=== PATIENT | female | born 1965 | race Caucasian/White ===

== ENCOUNTER → 2016-08-07 | Outpatient (CLI) | payer MEDICARE ==
[~2016-08-07] MED LIST: /CELE20CA; /CELE20CA PO; /FENT25PA; /FENT75PA; /LOR25TA PO; /PANT40TA OR; /QUET25TA OR; ABIL20TA2; ACET500C; ACET500C OR; AMIT25TA PO; ARTANE; ATIV1TAB2 OR; BACL10TA2 OR; BUSP10TA2 OR; BUSP15TA OR; BUSP30TA OR; CELE100C; CELE10TA; CELE10TA OR; CELE40TA; CETI10TA OR; CHLO10TA4 OR; CHLORPROMAZINE PO; CITALOPRAM; CLON0.5T; CYMB1CAP PO; CYPROHEPTADINE; DESIPRAMINE OR; DICL25TA OR; DICLOFENAC PO; DOXE25CA2 OR; DRIS50002 PO; DULO20CA OR; ETOD400T PO; FOLI1TAB; GABA300C2 PO; GABAPOW41; GEOD20CA14 OR; HYDR-2808 PO; HYDR5TAB23 PO; IMIT4KIT2 SC; IMIT6INJ INJ; IMIT6INJ SC; KLON0.5T OR; KLON1TAB OR; LAMI25TA PO; LIDO5DIS; LITH300C PO; LITH300T2; LYRI75CA OR; MACR100C3 PO; MACR50CA OR; MELATONIN PO; MORP1CAP7 PO; NAPR500T; NAPR500T PO; NEUR100C; NEUR300C OR; NEUR400C; NEUR400C OR; NEUR600T OR; OMEP20CA3 PO; OPAN5TAB3 PO; PAXI20TA OR; PERC10TA17 PO; PERC7.5T PO; PERC7.5T12 PO; PERPHEN AMITRIP; POTA20TA4 PO; PRAZ1CAP PO; PRAZ5CAP PO; PREG100CA PO; PROC5TA PO; PROM25TA PO; PROP20TA5 PO; PROP60TA; REGL10TA6 PO; REME45TA OR; REST30CA; REST7.5C8 OR; ROBA500T PO; SOMA350T PO; SUBO8MIS SL; SULI150T PO; TOPA100T PO; TOPA200T PO; TOPI100T; TOPI25TA2 OR; TOPI50TA; TRAM100T; TRAM50TA2; TRAM50TA2 OR; TRAZ100T; TRAZ10TA PO; TRAZ150T; TRAZ300T2; TRAZ300T2 OR; TYLE500T53; VALI5TAB; VENL37TA PO; VENL75TA2 PO; VICO5TAB OR; VICODINES TAB OR; VITA100T; ZYPR5TAB2 PO; ambien PO; effexor PO; melatonin OR; voltaren PO
--- NOTE | 2016-08-07 13:00 | REP ---
MRI brain without contrast: 08/07/2016. Comparison 02/01/2015, CT brain 06/18/2016. Clinical history: Tremor and memory loss. Findings: Our standard noncontrast protocol with T1 and T2, gradient echo, diffusion-weighted images in axial projection with sagittal T1 sequence provided. Findings: Ventricles are midline, symmetric and the without dilatation and displacement. The basal ganglia were symmetric and normal. All of this is unchanged. There are a few dilated perivascular spaces of Virchow in the basal ganglia as a normal finding. T2 and FLAIR images show no definite periventricular, deep central or subcortical white matter T2 hyperintensities. The fletcher-white junction differentiation was maintained. The cortical stripe is preserved. There is no vascular territory infarct, intracranial hemorrhage, mass or mass effect. No extra-axial collection. The brainstem was unremarkable. Cerebellum is symmetric and without atrophy, mass or signal abnormality. The VII/VIII cranial nerve complexes, mastoids and visualized sinuses were unremarkable except for a few ethmoid air cells with minor mucosal thickening. Orbits and contents symmetric and normal. The corpus callosum, optic chiasm and pituitary were unremarkable. The cerebellar tonsils show no evidence of significant ectopia. Gradient echo images show no evidence of hemorrhage. Diffusion weighted images and ADC mapping sequences demonstrate no evidence for acute ischemia or restricted water diffusion. Impression: 1. Negative brain MRI for any acute findings, white matter tract abnormality, atrophy, hemorrhage, mass, structural deformity. The brainstem and cerebellum likewise grossly intact. No acute ischemia on diffusion weighted images. Stable exam. Signed by Jaycob Arreaga MD 08/07/2016 04:45 P
== END | disposition home or self-care (01) ==
LOC: M RAD 08:57
PROVIDERS: ATTEND Psychiatry & Neurology Neurology
DX: R41.3 Other amnesia (principal); R25.1 Tremor, unspecified

== ENCOUNTER → 2016-08-28 | Outpatient (CLI) | payer MEDICARE ==
--- NOTE | 2016-08-29 00:03 | ECWPNPC ---
PATIENT NAME: ANGIE ELLIS : 1965 GENDER: FEMALE VISIT DATE: 08/28/2016 DISCHARGE DATE: 08/28/16 1522 VISIT LOCKED DATE TIME: PHYSICIAN: JERE TERRY RESOURCE: JERE TERRY REASON FOR APPOINTMENT 1. MEDS/ BACK HISTORY OF PRESENT ILLNESS HISTORY OF PRESENT ILLNESS: PAIN THE PATIENT DESCRIBES THE PAIN... FALL RISK SCREENING: SCREENING :NO FALLS IN THE PAST YEAR TODAY'S VISIT: NOTES: RECENT FALL 05/20 FX LEFT FOOT NEEDED REPAIR WITH PLATES AND SCREWS. KOKO IS ACROSS THE ANKLE. BACK PAIN IS STILL A CONSTANT - MORNING ARE THE WORST. USING DCS BUT STIM NOT ALWAYS IN RIGHT. DID NOT DO PT FOR FOOT/DEWAYNE LE. FIBROMYALGIA IS QUITE UNCOMFORTABLE WITH PRESSURE APPLIED TO SKIN. CURRENT MEDICATIONS TAKING SUBOXONE 8-2 MG FILM 3 APPLICATIONS SUBLINGUAL ONCE A DAY, NOTES: DR MARTIN TAKING IMITREX STATDOSE REFILL 6 MG/0.5ML SOLUTION SC SUBCUTANEOUS DAILY NEEDED MAXIMUM 4 MIGRAINES PER MONTH TAKING LAMOTRIGINE 200 MG TABLET 2 TABS ORALLY BID TAKING ZOFRAN 4 MG TABLET 1 TAB(S) ORALLY ONCE A DAY TAK[place]ITAMIN D 12141 TABLET 1 TABLET ORALLY WEEKLY TAKING CYCLOBENZAPRINE HCL 10 MG TABLET 1 TABLET ORALLY THREE TIMES A DAY PRN TAKING OMEPRAZOLE 20MG 20MG TABLET 1 TAB ORAL ONCE DAILY TAKING LYRICA 225 MG CAPSULE 1 CAPSULE ORALLY TWICE A DAY NOT-TAKING TRAZODONE 100 100MG TABLET 2-3 TABS ORAL DAILY NOT-TAKING LITHIUM CARBONATE ER 600 MG TABLET EXTENDED RELEASE 1 TABLET ORALLY ONCE A DAY NOT-TAKING SPIRONOLACTONE 100 MG TABLET 1 TABLET ORALLY ONCE A DAY NOT-TAKING TRAMADOL HCL 50 MG TABLET 1 TABLET NEEDED ORALLY EVERY 6 HRS MEDICATION LIST REVIEWED AND RECONCILED WITH THE PATIENT PAST MEDICAL HISTORY BIPOLAR/DEPRESSION/PTSD- [facility] CHRONIC BACK PAIN/LUMBAR DISC PROTRUSION/ LUMBAR RADICULOPATHY- SURGERY PER DR TRUMAN SERNA ON Feb-FUSION DYSPEPSIA CHRONIC HEADACHE/MIGRAINES FIBROMYALGIA NEW DAILY PERSISTENT HEADACHE OTHER SPECIFIED PRE-OPERATIVE EXAMINATION JAW PAIN POLYDIPSIA ALLERGIES HALDOL: ANXIOUS: SIDE EFFECTS THORAZINE: ANXIOUS: SIDE EFFECTS NSAIDS: LITHIUM BALANCE DISRUPTED: CONTRAINDICATION SOCIAL HISTORY GENERAL: TOBACCO USE ARE YOU A:NONSMOKER LEARNING BARRIERS / SPECIAL NEEDS ORIENTED TO PLAN OF CARE: PATIENT, PAIN MANAGEMENT PATIENT, ORIENTED TO PLAN OF CARE: PATIENT, PAIN MANAGEMENT PATIENT. NEW PATIENT PAIN DIARY TODAY'S VISITNOTES FROM 0-10, WHAT LEVEL IS YOUR PAIN TODAY?0 PAIN CLINIC PFS, CLERGY, PUBLIC HEALTH REFERRALS PFS REFERRAL NEEDED?NO CLERGY REFERRAL NEEDED?NO PUBLIC HEALTH REFERRAL NEEDED?NO WAS THE PROVIDER NOTIFIED OF ANY PERTINENT INFO?NO PFS REFERRAL NEEDED?NO CLERGY REFERRAL NEEDED?NO PUBLIC HEALTH REFERRAL NEEDED?NO WAS THE PROVIDER NOTIFIED OF ANY PERTINENT INFO?NO REVIEW OF SYSTEMS CONSTITUTIONAL: ANY CHANGE IN YOUR MEDICAL CONDITION? YES WEIGHT LOSS . CHILLS NO . FEVER NO . INFECTION: DO YOU HAVE NEW INFECTIONS? NO . DO YOU HAVE HISTORY OF MRSA? NO . MUSCULOSKELETAL: ANY NEW PATTERNS OF PAIN OR NUMBNESS? YES HAD SURGERY ON LEFT ANKLE DUE &QUOT;TO ROLLING IT &QUOT; . GASTROENTEROLOGY: ANY NEW CHANGE IN BOWEL CONTROL? NO . GENITOURINARY: ANY NEW CHANGE IN BLADDER CONTROL? NO . IS THERE A CHANCE YOU COULD BE ? NO . HEMATOLOGY/LYMPH: DO YOU TAKE ANY BLOOD THINNERS? (FOR EXAMPLE- COUMADIN, PLAVIX, AGGRENOX, PLATEL, PRADAXA, OR XARELTO) NO . WHEN WAS YOUR LAST DOSE? DATE: TIME: . NEUROLOGY: HAVE YOU FALLEN IN THE PAST 6 MONTHS? NO . ANY NEW EXTREMITY NUMBNESS OR WEAKNESS? NO . CARDIOLOGY: DO YOU HAVE A PACEMAKER OR DEFIBRILLATOR? NO . RESPIRATORY: HAVE YOU BEEN SICK IN THE PAST WEEK? NO . FEVER NO . FLU LIKE SYMPTOMS? NO . COUGH NO . INTEGUMENTARY: DO YOU HAVE ANY RASHES OR OPEN SORES? NO . ALLERGIC/IMMUNO: ARE YOU ALLERGIC TO SHELLFISH OR IV DYE? NO . ANY NEW ALLERGIES? NO . PSYCHIATRIC: DO YOU HAVE THOUGHTS OF HURTING YOURSELF OR SOMEONE ELSE? NO . ARE YOU ABUSED, NEGLECTED, OR IN AN UNSAFE ENVIRONMENT? NO . ENDOCRINOLOGY: ARE YOU DIABETIC? NO . OTHER: DO YOU NEED ANY PRESCRIPTIONS? NO . IF YES, PLEASE LIST: ____ . ANY NEW PROBLEMS WITH YOUR MEDICATIONS? NO . WHEN DID YOU LAST EAT? ____ . WHEN DID YOU LAST DRINK? ____ . WHAT DID YOU LAST DRINK? ____ . NAME OF PERSON DRIVING YOU HOME? ____ . DO YOU HAVE ANY OTHER QUESTIONS OR CONCERNS NO . REVIEWED BY: PROVIDER: JERE HENDERSON . VITAL SIGNS WT 167.4 LBS, HT 65 IN, BMI 27.85 INDEX, BP 144/89 MM HG, HR 86 /MIN, RR 16 /MIN, TEMP 97.4 F, OXYGEN SAT % 96%, SAFE IN ENV? (Y/N) Y, NA INITIALS SC 14:10, REVIEWED BY: KG. EXAMINATION GENERAL EXAMINATION: LUNGS:CLEAR TO AUSCULTATION BILATERALLY. HEART:HEART RATE REGULAR. MUSCULOSKELETAL:MUSCLE STRENGTH TESTING 5/5 BILATERAL UPPER AND LOWER EXTREMITIES. , PALPATION: POSITIVE FOR PAIN OVER L/S SPINE. POSITIVE FOR PAIN OVER L/S PARSPINALS. TENDER POINTS ABOVE AND BELOW THE WAIST BOTH SIDES OF THE BODY CONSISTANT WITH FIBROMYALGIA. JOINTS:LEFT ANKLE EDEMATOUS, TENDER, DECREASED ROM.. ASSESSMENTS LUMBAR POST-LAMINECTOMY SYNDROME - M96.1 (PRIMARY) PAIN IN LEFT ANKLE AND JOINTS OF LEFT FOOT - M25.572 OTHER CHRONIC PAIN - G89.29 TREATMENT LUMBAR POST-LAMINECTOMY SYNDROME START LYRICA CAPSULE, 225 MG, 1 CAPSULE, ORALLY, TWICE A DAY MDD=2, 30 DAY(S), 60, REFILLS 5 NOTES: ASPERCREME TO LEFT ANKLE, EXCEDRINE MIGRAINE IF NEEDED FOR HEADACHE, FALLS CARE PLAN: 1. RECOMMEND REMOVING ALL THROW RUGS. 2. RECOMMEND NIGHT LIGHTS 3. RECOMMEND WEARING RUBBER SOLED SHOES AND TO NOT GO BAREFOOT. 4.. ADVISED TO CHANGE POSITION SLOWLY FROM SUPINE TO STANDING TO AVOID DIZZINESS. 5. ADVISED TO USE ASSISTIVE DEVICE SUCH CANE OR WALKER 6. USE [employer] SERVICES OR KEEP PORTABLE PHONE READILY AVAILABLE. CLINICAL NOTES: ISTOP REGISTRY REVIEWED AND DEMNOSTRATES COMPLLIANCE. PROCEDURE CODES FA211 ESTABILISHED PATIENT [facility] FACILITY CHARGE G5443 BP SCR PRFRM RCMDD DEFIND SCR INTVL G8730 PAIN ASSESS POS TOOL F/U PLAN DOC 3016F PT SCRND UNHLTHY [place] USE 1124F ACP DISCUSS-NO DSCNMKR DOCD 1036F TOBACCO NON-USER 0518F FALL PLAN OF CARE DOCD G8427 DOC MEDS VERIFIED W/PT OR RE G8420 BMI<30 AND >=22 CALC & DOCU 3288F FALL RISK ASSESSMENT DOCD DISPOSITION & COMMUNICATION FOLLOW UP 4 MONTHS ELECTRONICALLY SIGNED BY BILLY QUIÑONES ON 08/28/2016 AT 05:31 PM EST DISCLAIMER : THIS IS A VISIT SUMMARY EXTRACTED FROM THE [employer] CHART. IT IS NOT A COPY OF THE [employer] PROGRESS NOTE. OLY
== END ==
LOC: M PAIN 14:40
PROVIDERS: ATTEND Nurse Practitioner Family
DX: Z09 Encounter for follow-up examination after completed treatment for conditions other than malignant neoplasm (principal); G89.29 Other chronic pain; M96.1 Postlaminectomy syndrome, not elsewhere classified; M25.572 Pain in left ankle and joints of left foot; F31.9 Bipolar disorder, unspecified; F43.10 Post-traumatic stress disorder, unspecified; G43.909 Migraine, unspecified, not intractable, without status migrainosus; M79.7 Fibromyalgia; R63.1 Polydipsia; Z88.8 Allergy status to other drugs, medicaments and biological substances; Z88.6 Allergy status to analgesic agent; Z79.899 Other long term (current) drug therapy

== ENCOUNTER → 2016-11-19 | Outpatient (CLI) | payer MEDICARE ==
--- NOTE | 2016-12-04 00:25 | ECWPNPC ---
PATIENT NAME: ANGIE ELLIS : 1965 GENDER: FEMALE VISIT DATE: 11/19/2016 DISCHARGE DATE: 11/19/16 1543 VISIT LOCKED DATE TIME: PHYSICIAN: JERE TERRY RESOURCE: JERE TERRY REASON FOR APPOINTMENT 1. BACK HISTORY OF PRESENT ILLNESS HISTORY OF PRESENT ILLNESS: PAIN THE PATIENT DESCRIBES THE PAIN... FALL RISK SCREENING: SCREENING :NO FALLS IN THE PAST YEAR TODAY'S VISIT: NOTES: HAS BEEN EXPERIENCING INCREASE IN PAIN, PARTICULARLY IN EARLY AM ACROSS THE LOW BACK AND SACRUM. NO RADIATION OF PAIN TO LEGS. RATES PAIN TODAY 9/10. DESCRIBES PAIN CONSTANT, TENDER, THROBBING AND ACHING. CONTINUES TO BE QUITE ACTIVE. . CURRENT MEDICATIONS TAKING SUBOXONE 8-2 MG FILM 3 APPLICATIONS SUBLINGUAL ONCE A DAY, NOTES: DR MARTIN TAKING IMITREX STATDOSE REFILL 6 MG/0.5ML SOLUTION SC SUBCUTANEOUS DAILY NEEDED MAXIMUM 4 MIGRAINES PER MONTH TAKING LAMOTRIGINE 200 MG TABLET 2 TABS ORALLY BID TAKING LYRICA 225 MG CAPSULE 1 CAPSULE ORALLY TWICE A DAY TAKING ONDANSETRON HCL 4 MG TABLET 1 TAB ORALLY EVERY 8 HOURS NEEDED FOR NAUSEA/VOMITING TAKING LAMOTRIGINE 25 MG TABLET 3 TABLETS ORALLY BEFORE BEDTIME NOT-TAKING ZOFRAN 4 MG TABLET 1 TAB(S) ORALLY ONCE A DAY NOT-TAKING VITAMIN D 84952 TABLET 1 TABLET ORALLY WEEKLY NOT-TAKING CYCLOBENZAPRINE HCL 10 MG TABLET 1 TABLET ORALLY THREE TIMES A DAY PRN NOT-TAKING OMEPRAZOLE 20MG 20MG TABLET 1 TAB ORAL ONCE DAILY NOT-TAKING LYRICA 225 MG CAPSULE 1 CAPSULE ORALLY TWICE A DAY MDD=2 NOT-TAKING TRAZODONE 100 100MG TABLET 2-3 TABS ORAL DAILY NOT-TAKING LITHIUM CARBONATE ER 600 MG TABLET EXTENDED RELEASE 1 TABLET ORALLY ONCE A DAY NOT-TAKING SPIRONOLACTONE 100 MG TABLET 1 TABLET ORALLY ONCE A DAY NOT-TAKING TRAMADOL HCL 50 MG TABLET 1 TABLET NEEDED ORALLY EVERY 6 HRS MEDICATION LIST REVIEWED AND RECONCILED WITH THE PATIENT PAST MEDICAL HISTORY BIPOLAR/DEPRESSION/PTSD- [facility] CHRONIC BACK PAIN/LUMBAR DISC PROTRUSION/ LUMBAR RADICULOPATHY- SURGERY PER DR ALEXANDRA- DAPHNE ON Feb-FUSION DYSPEPSIA CHRONIC HEADACHE/MIGRAINES FIBROMYALGIA NEW DAILY PERSISTENT HEADACHE OTHER SPECIFIED PRE-OPERATIVE EXAMINATION JAW PAIN POLYDIPSIA ALLERGIES HALDOL: ANXIOUS: SIDE EFFECTS THORAZINE: ANXIOUS: SIDE EFFECTS NSAIDS: LITHIUM BALANCE DISRUPTED: CONTRAINDICATION REVIEW OF SYSTEMS CONSTITUTIONAL: ANY CHANGE IN YOUR MEDICAL CONDITION? NO . CHILLS NO . FEVER NO . INFECTION: DO YOU HAVE NEW INFECTIONS? NO . DO YOU HAVE HISTORY OF MRSA? NO . MUSCULOSKELETAL: ANY NEW PATTERNS OF PAIN OR NUMBNESS? NO . GASTROENTEROLOGY: ANY NEW CHANGE IN BOWEL CONTROL? NO . GENITOURINARY: ANY NEW CHANGE IN BLADDER CONTROL? NO . IS THERE A CHANCE YOU COULD BE ? NO . HEMATOLOGY/LYMPH: DO YOU TAKE ANY BLOOD THINNERS? (FOR EXAMPLE- COUMADIN, PLAVIX, AGGRENOX, PLATEL, PRADAXA, OR XARELTO) NO . WHEN WAS YOUR LAST DOSE? DATE: TIME: . NEUROLOGY: HAVE YOU FALLEN IN THE PAST 6 MONTHS? NO . ANY NEW EXTREMITY NUMBNESS OR WEAKNESS? NO . CARDIOLOGY: DO YOU HAVE A PACEMAKER OR DEFIBRILLATOR? NO . RESPIRATORY: HAVE YOU BEEN SICK IN THE PAST WEEK? NO . FEVER NO . FLU LIKE SYMPTOMS? NO . COUGH NO . INTEGUMENTARY: DO YOU HAVE ANY RASHES OR OPEN SORES? NO . ALLERGIC/IMMUNO: ARE YOU ALLERGIC TO SHELLFISH OR IV DYE? NO . ANY NEW ALLERGIES? NO . PSYCHIATRIC: DO YOU HAVE THOUGHTS OF HURTING YOURSELF OR SOMEONE ELSE? NO . ARE YOU ABUSED, NEGLECTED, OR IN AN UNSAFE ENVIRONMENT? NO . ENDOCRINOLOGY: ARE YOU DIABETIC? NO . OTHER: DO YOU NEED ANY PRESCRIPTIONS? NO . IF YES, PLEASE LIST: ____ . ANY NEW PROBLEMS WITH YOUR MEDICATIONS? NO . WHEN DID YOU LAST EAT? ____ . WHEN DID YOU LAST DRINK? ____ . WHAT DID YOU LAST DRINK? ____ . NAME OF PERSON DRIVING YOU HOME? ____ . DO YOU HAVE ANY OTHER QUESTIONS OR CONCERNS NO . REVIEWED BY: PROVIDER: JERE HENDERSON . VITAL SIGNS WT 175.0 LBS, HT 65 IN, BMI 29.12 INDEX, BP 136/75 MM HG, HR 80 /MIN, RR 16 /MIN, TEMP 96.4 F, OXYGEN SAT % 98%, NA INITIALS TL 1418. EXAMINATION GENERAL EXAMINATION: LUNGS:CLEAR TO AUSCULTATION BILATERALLY. HEART:HEART RATE REGULAR. MUSCULOSKELETAL:MUSCLE STRENGTH TESTING 5/5 BILATERAL UPPER AND LOWER EXTREMITIES. , PALPATION: POSITIVE FOR PAIN OVER L/S SPINE. POSITIVE FOR PAIN OVER L/S PARSPINALS. TENDER POINTS ABOVE AND BELOW THE WAIST BOTH SIDES OF THE BODY CONSISTANT WITH FIBROMYALGIA. JOINTS:LEFT ANKLE EDEMATOUS, TENDER, DECREASED ROM.. ASSESSMENTS LUMBAR POST-LAMINECTOMY SYNDROME - M96.1 (PRIMARY) PAIN IN LEFT ANKLE AND JOINTS OF LEFT FOOT - M25.572 OTHER CHRONIC PAIN - G89.29 TREATMENT LUMBAR POST-LAMINECTOMY SYNDROME START HYDROCHLOROTHIAZIDE TABLET, 25 MG, 1 TABLET IN THE MORNING, ORALLY, DAILY, 30 DAY(S), 30 TABLET, REFILLS 2 NOTES: BILATERAL THERAPEUTIC LUMBAR FACET BLOCK,FACET JOINT INJECTION: YOUR EXPERIENCE MATERIAL WAS PRINTED, REVIEWED WITH PT AND GIVEN TO PT. PROCEDURE CODES FA211 ESTABILISHED PATIENT [facility] FACILITY CHARGE G8783 BP SCR PRFRM RCMDD DEFIND SCR INTVL G8730 PAIN ASSESS POS TOOL F/U PLAN DOC 3016F PT SCRND UNHLTHY [place] USE 1124F ACP DISCUSS-NO DSCNMKR DOCD 1036F TOBACCO NON-USER 0518F FALL PLAN OF CARE DOCD G8427 DOC MEDS VERIFIED W/PT OR RE G8420 BMI<30 AND >=22 CALC & DOCU DISPOSITION & COMMUNICATION FOLLOW UP AFTER INJECTION AND WHEN SEEN BY Florentino NAVA (REASON: BILATERAL THERAPEUTIC LUMBAR FACET BLOCK) ELECTRONICALLY SIGNED BY BILLY QUIÑONES ON 12/03/2016 AT 01:32 PM EDT DISCLAIMER : THIS IS A VISIT SUMMARY EXTRACTED FROM THE [employer] CHART. IT IS NOT A COPY OF THE [employer] PROGRESS NOTE. MTDD
== END | disposition home or self-care (01) ==
LOC: M PAIN 14:20
PROVIDERS: ATTEND Nurse Practitioner Family
DX: G89.29 Other chronic pain (principal); M96.1 Postlaminectomy syndrome, not elsewhere classified; M25.572 Pain in left ankle and joints of left foot; F33.9 Major depressive disorder, recurrent, unspecified; F43.10 Post-traumatic stress disorder, unspecified; R10.13 Epigastric pain; G43.909 Migraine, unspecified, not intractable, without status migrainosus; M79.7 Fibromyalgia; Z79.899 Other long term (current) drug therapy; Z79.891 Long term (current) use of opiate analgesic; Z88.8 Allergy status to other drugs, medicaments and biological substances

== ENCOUNTER → 2016-12-02 | Outpatient (CLI) | payer MEDICARE, OTHER ==
[~2016-12-02] MED LIST changes: +BUPIVACAINE HCL 0.25% 30 ML VIAL As Ordered ONE; +ISOVUE-M 300 61% 15ML VIAL (Q9967) As Ordered ONE; +LIDOCAINE 1% SDV INJ 30 ML VIAL As Ordered ONE; +MIDAZOLAM INJ 2 MG/2 ML VIAL (J2250) As Ordered ONE; +TRIAMCINOLONE ACETONIDE SUSP 40 MG/ML VIAL (J3301) As Ordered ONE; +diazePAM 5 MG TAB As Ordered ONE; +diphenhydrAMINE 25 MG CAP As Ordered ONE
--- NOTE | 2016-12-02 17:47 | REP ---
FACET BLOCK: The images were reviewed with Dr. Martinez. The patient has a history of low back pain. The portable C-ARM was provided in the OR for Dr. Gold for fluoroscopic guidance. 4 intraoperative fluoroscopic spot films were obtained for needle placement verification for bilateral lumbar facet injection. The films are on the PACs system and are available for review. 33 seconds of fluoroscopic time was utilized for this procedure. Reviewed by TEX Aguilar 12/03/2016 12:35 PEdited and Signed by Chivo Martinez MD 12/03/2016 07:22 P
--- NOTE | 2016-12-06 23:31 | ECWPNPC ---
PATIENT NAME: ANGIE ELLIS : 1965 GENDER: FEMALE VISIT DATE: 12/02/2016 DISCHARGE DATE: 12/02/16 1503 VISIT LOCKED DATE TIME: PHYSICIAN: DENVER MEDRANO RESOURCE: DENVER MEDRANO REASON FOR APPOINTMENT 1. BILATERAL THERAPEUTIC LUMBAR FACET BLOCK HISTORY OF PRESENT ILLNESS HISTORY OF PRESENT ILLNESS: PAIN THE PATIENT DESCRIBES THE PAIN... FALL RISK SCREENING: SCREENING :NO FALLS IN THE PAST YEAR CURRENT MEDICATIONS TAKING SUBOXONE 8-2 MG FILM 3 APPLICATIONS SUBLINGUAL ONCE A DAY, NOTES: 0500 TAKING IMITREX STATDOSE REFILL 6 MG/0.5ML SOLUTION SC SUBCUTANEOUS DAILY NEEDED MAXIMUM 4 MIGRAINES PER MONTH, NOTES: 6 MONTHS AGO TAKING LAMOTRIGINE 200 MG TABLET 2 TABS ORALLY ONCE DAILY, NOTES: 0700 TAKING LYRICA 225 MG CAPSULE 1 CAPSULE ORALLY TWICE A DAY, NOTES: 0700 TAKING ONDANSETRON HCL 4 MG TABLET 1 TAB ORALLY EVERY 8 HOURS NEEDED FOR NAUSEA/VOMITING, NOTES: 3 WEEKS AGO TAKING LAMOTRIGINE 25 MG TABLET 3 TABLETS ORALLY BEFORE BEDTIME, NOTES: 12/01/16@2100 TAKING HYDROCHLOROTHIAZIDE 25 MG TABLET 1 TABLET IN THE MORNING ORALLY DAILY, NOTES: 0700 TAKING AMOXICILLIN 500 MG CAPSULE 1 CAPSULE ORALLY EVERY 12 HRS, NOTES: 0700 NOT-TAKING ZOFRAN 4 MG TABLET 1 TAB(S) ORALLY ONCE A DAY NOT-TAKING VITAMIN D 46453 TABLET 1 TABLET ORALLY WEEKLY NOT-TAKING CYCLOBENZAPRINE HCL 10 MG TABLET 1 TABLET ORALLY THREE TIMES A DAY PRN NOT-TAKING OMEPRAZOLE 20MG 20MG TABLET 1 TAB ORAL ONCE DAILY NOT-TAKING LYRICA 225 MG CAPSULE 1 CAPSULE ORALLY TWICE A DAY MDD=2 NOT-TAKING TRAZODONE 100 100MG TABLET 2-3 TABS ORAL DAILY NOT-TAKING LITHIUM CARBONATE ER 600 MG TABLET EXTENDED RELEASE 1 TABLET ORALLY ONCE A DAY NOT-TAKING SPIRONOLACTONE 100 MG TABLET 1 TABLET ORALLY ONCE A DAY NOT-TAKING TRAMADOL HCL 50 MG TABLET 1 TABLET NEEDED ORALLY EVERY 6 HRS DISCONTINUED LAMOTRIGINE 200 MG TABLET 1 TABLET ORALLY TWICE A DAY MEDICATION LIST REVIEWED AND RECONCILED WITH THE PATIENT PAST MEDICAL HISTORY BIPOLAR/DEPRESSION/PTSD- [facility] CHRONIC BACK PAIN/LUMBAR DISC PROTRUSION/ LUMBAR RADICULOPATHY- SURGERY PER DR TRUMAN SERNA ON Feb-FUSION DYSPEPSIA CHRONIC HEADACHE/MIGRAINES FIBROMYALGIA NEW DAILY PERSISTENT HEADACHE OTHER SPECIFIED PRE-OPERATIVE EXAMINATION JAW PAIN POLYDIPSIA ALLERGIES HALDOL: ANXIOUS: SIDE EFFECTS THORAZINE: ANXIOUS: SIDE EFFECTS NSAIDS: LITHIUM BALANCE DISRUPTED: CONTRAINDICATION REVIEW OF SYSTEMS CONSTITUTIONAL: ANY CHANGE IN YOUR MEDICAL CONDITION? NO . CHILLS NO . FEVER NO . INFECTION: DO YOU HAVE NEW INFECTIONS? NO . DO YOU HAVE HISTORY OF MRSA? NO . MUSCULOSKELETAL: ANY NEW PATTERNS OF PAIN OR NUMBNESS? NO . GASTROENTEROLOGY: ANY NEW CHANGE IN BOWEL CONTROL? NO . GENITOURINARY: ANY NEW CHANGE IN BLADDER CONTROL? NO . IS THERE A CHANCE YOU COULD BE ? NO . HEMATOLOGY/LYMPH: DO YOU TAKE ANY BLOOD THINNERS? (FOR EXAMPLE- COUMADIN, PLAVIX, AGGRENOX, PLATEL, PRADAXA, OR XARELTO) NO . WHEN WAS YOUR LAST DOSE? DATE: TIME: . NEUROLOGY: HAVE YOU FALLEN IN THE PAST 6 MONTHS? NO . ANY NEW EXTREMITY NUMBNESS OR WEAKNESS? NO . CARDIOLOGY: DO YOU HAVE A PACEMAKER OR DEFIBRILLATOR? NO . RESPIRATORY: HAVE YOU BEEN SICK IN THE PAST WEEK? NO . FEVER NO . FLU LIKE SYMPTOMS? NO . COUGH NO . INTEGUMENTARY: DO YOU HAVE ANY RASHES OR OPEN SORES? NO . ALLERGIC/IMMUNO: ARE YOU ALLERGIC TO SHELLFISH OR IV DYE? NO . ANY NEW ALLERGIES? NO . PSYCHIATRIC: DO YOU HAVE THOUGHTS OF HURTING YOURSELF OR SOMEONE ELSE? NO . ARE YOU ABUSED, NEGLECTED, OR IN AN UNSAFE ENVIRONMENT? NO . ENDOCRINOLOGY: ARE YOU DIABETIC? NO . OTHER: DO YOU NEED ANY PRESCRIPTIONS? NO . IF YES, PLEASE LIST: ____ . ANY NEW PROBLEMS WITH YOUR MEDICATIONS? NO . WHEN DID YOU LAST EAT? ____12/01/16 . WHEN DID YOU LAST DRINK? ____12/01/16 . WHAT DID YOU LAST DRINK? ____WATER . NAME OF PERSON DRIVING YOU HOME? ____ROLLY ROGEL . DO YOU HAVE ANY OTHER QUESTIONS OR CONCERNS NO . REVIEWED BY: PROVIDER: . VITAL SIGNS WT 179.0 LBS, HT 65 IN, BMI 29.78 INDEX, BP 119/65 MM HG, HR 73 /MIN, RR 16 /MIN, TEMP 96.9 F, OXYGEN SAT % 96%, NA INITIALS TL 1108, REVIEWED BY: VD. ASSESSMENTS SPONDYLOSIS WITHOUT MYELOPATHY OR RADICULOPATHY, LUMBAR REGION - M47.816 (PRIMARY) SPONDYLOSIS WITHOUT MYELOPATHY OR RADICULOPATHY, LUMBOSACRAL REGION - M47.817 PROCEDURES PN LUMBAR FACET BLOCK THERAPEUTIC PRE PROCEDURE DIAGNOSIS LUMBAR SPONDYLOSIS, LUMBOSACRAL SPONDYLOSIS POST PROCEDURE DIAGNOSIS LUMBAR SPONDYLOSIS, LUMBOSACRAL SPONDYLOSIS PROCEDURE BILATERAL L4-L5 AND BILATERAL L5-S1 LUMBAR FACET THERAPEUTIC BLOCK SURGEON DR. DENVER MEDRANO SENIOR COMPUTER SPECIALIST NONE ANESTHESIA LOCAL WITH IV SEDATION PRE PROCEDURE NOTE THE PATIENT HAS A HISTORY OF CHRONIC LOW BACK PAIN. I EVALUATE THE PATIENT AND REVIEWED THE CHART. I WENT OVER THE RISKS, ALTERNATIVES, AND BENEFITS ASSOCIATED WITH THIS PROCEDURE. PATIENT WOULD LIKE TO MOVE FORWARD WITH IV SEDATION DUE TO DISCOMFORT, PAIN AND ANXIETY ASSOCIATED WITH THE PROCEDURE. THE PATIENT WOULD LIKE TO PROCEED AND GIVE CONSENT TO PERFORMED THE PROCEDURE. THE PATIENT DENIES UNEXPLAINABLE WEIGHT LOSS, FEVER, CHILLS, OR NEW CHANGES IN URINARY OR BOWEL CONTROL DESCRIPTION OF PROCEDURE THE PATIENT WAS BROUGHT TO THE PROCEDURE ROOM AND PLACED IN THE PRONE POSITION. THE LUMBOSACRAL AREA WAS CLEANED WITH CHLORAPREP SOLUTION AND DRAPED ASEPTICALLY. THE PROCEDURE WAS DONE UNDER STERILE CONDITIONS. I CHECKED LATERALITY AND THE LEVEL WHERE THE PROCEDURE WAS GOING TO BE PERFORMED WITH THE PATIENT AND THE SUPPORTING STAFF AT THE MOMENT OF THE TIME OUT IN THE PROCEDURE ROOM. UNDER FLUOROSCOPIC GUIDANCE, THE TARGET POINT WAS SELECTED AT THE RIGHT AND LEFT L4-L5 AND RIGHT AND LEFT L5-S1 FACET JOINT. TARGET POINT WAS SELECTED AFTER LATERAL ROTATION AND TILT OF THE MAGNIFIER OF THE C-ARM. LIDOCAINE 0.5% WAS USED TO NUMB THE SKIN AND THE SUBCUTANEOUS TISSUE BELOW IT. SPINAL NEEDLES, 22-GAUGE, WERE ADVANCED UNDER FLUOROSCOPIC GUIDANCE AND FOLLOWING PATIENT FEEDBACK UNTIL THE TARGETS WERE TOUCHED. THE POSITION OF THE NEEDLES WAS VERIFIED WITH AP AND LATERAL VIEWS. AFTER PROPER POSITION OF THE NEEDLES WAS ACHIEVED, ISOVUE-M DYE 30% 0.1 ML WAS INJECTED SHOWING ADEQUATE SPREAD OF THE DYE. THEN A SOLUTION OF 1.9 ML OF BUPIVACAINE 0.125% OF KENALOG MG WAS INJECTED AT EACH SITE. PATIENT RECEIVED BENADRYL 25 G, VALIUM 3 G, AND VERSED 3 G DIVIDED DOSES V1. . THERE WAS NO EVIDENCE OF BLOOD, PARESTHESIA OR CEREBROSPINAL FLUID DURING THE PROCEDURE. THE PATIENT WAS SENT TO THE RECOVERY ROOM. THE PATIENT WAS MOVING THE EXTREMITIES AND DOING WELL. THERE WAS NO COMPLICATION DURING THE PROCEDURE. FLUOROSCOPY TIME WAS 33 SECONDS. FACE TO FACE TIME WAS 16 MINUTES POST PROCEDURE NOTE THE PATIENT WILL BE SEEN IN A FOLLOW UP IN THE NEXT FEW WEEKS. INSTRUCTIONS WERE GIVEN, QUESTIONS WERE ANSWERED, AND THE PATIENT EXPRESSED UNDERSTANDING AND AGREES WITH THE PLAN. I, ALDO BAEZ, DOCUMENTED THE ABOVE INFORMATION ACTING A SCRIBE FOR DR. MEDRANO. I HAVE REVIEWED THE ABOVE DOCUMENT, WRITTEN BY ALDO TALLEYIBGeoff AND I VERIFY THAT IT IS [facility] FACET BLOCK (PAIN)[id number] PROCEDURE CODES 45900 INJ PARAVERT F JNT L/S 1 LEV 41789 INJ PARAVERT F JNT L/S 2 LEV 6045F RADXPS IN END [id number] PXD 07429 MOD SED SAME PHYS/QHP 5/>YRS DISPOSITION & COMMUNICATION FOLLOW UP 3 WEEKS ELECTRONICALLY SIGNED BY DENVER MEDRANO MD ON 12/06/2016 AT 05:20 PM EDT DISCLAIMER : THIS IS A VISIT SUMMARY EXTRACTED FROM THE [employer] CHART. IT IS NOT A COPY OF THE [employer] PROGRESS NOTE. MTDD
== END | disposition home or self-care (01) ==
LOC: M PAIN 11:40
PROVIDERS: ATTEND Anesthesiology
DX: G89.29 Other chronic pain (principal); M47.816 Spondylosis without myelopathy or radiculopathy, lumbar region; M47.817 Spondylosis without myelopathy or radiculopathy, lumbosacral region; F33.9 Major depressive disorder, recurrent, unspecified; F43.10 Post-traumatic stress disorder, unspecified; R10.13 Epigastric pain; G43.909 Migraine, unspecified, not intractable, without status migrainosus; M79.7 Fibromyalgia; R63.1 Polydipsia; R68.84 Jaw pain; Z79.899 Other long term (current) drug therapy; Z79.891 Long term (current) use of opiate analgesic; Z88.8 Allergy status to other drugs, medicaments and biological substances
CPT/HCPCS: 64493; 64494; 99152; J2250; J3301; Q9967

== ENCOUNTER → 2017-03-29 | Outpatient (REF) | payer OTHER ==
[~2017-03-29] MED LIST changes: -BUPIVACAINE HCL 0.25% 30 ML VIAL As Ordered ONE; -ISOVUE-M 300 61% 15ML VIAL (Q9967) As Ordered ONE; -LIDOCAINE 1% SDV INJ 30 ML VIAL As Ordered ONE; -MIDAZOLAM INJ 2 MG/2 ML VIAL (J2250) As Ordered ONE; -PERC10TA17 PO; +PERC10TA26 PO; -TRIAMCINOLONE ACETONIDE SUSP 40 MG/ML VIAL (J3301) As Ordered ONE; -diazePAM 5 MG TAB As Ordered ONE; -diphenhydrAMINE 25 MG CAP As Ordered ONE
== END ==
LOC: M LAB REF 13:44
PROVIDERS: ATTEND Physician Assistant
DX: N39.0 Urinary tract infection, site not specified (principal)

== ENCOUNTER → 2017-05-18 | Outpatient (CLI) | payer MEDICARE | LOC: M LAB 14:23 | PROVIDERS: ATTEND Psychiatry & Neurology Psychiatry | DX: F31.9 Bipolar disorder, unspecified (principal) ==

== ENCOUNTER → 2017-06-14 | Outpatient (CLI) | payer MEDICARE | LOC: M PAIN 10:45 | DX: M96.1 Postlaminectomy syndrome, not elsewhere classified (principal); M79.7 Fibromyalgia; F32.9 Major depressive disorder, single episode, unspecified; Z79.899 Other long term (current) drug therapy; Z88.8 Allergy status to other drugs, medicaments and biological substances | CPT/HCPCS: G0463 ==

== ENCOUNTER → 2017-06-21 | Outpatient (CLI) | payer MEDICARE ==
--- NOTE | 2017-06-21 13:27 | REP ---
MRI lumbar spine without and with IV gadolinium: History: Low back pain. Patient has a history of a conditional dorsal column stimulator. This was placed in MR safe mode. Comparison MRI study is from February 03, 2012. Gadolinium enhancement dose: 16 ml of intravenous ProHance. Technique: Sagittal and axial T1 and T2-weighted scans are acquired in the usual fashion with and without fat saturation. Sequences include spin echo, turbo spin-echo, and STIR imaging sequences. MRI findings: Lumbar vertebral body heights are preserved. Alignment is normal. There is disc space narrowing and decreased disc space signal intensity at L4-5 and at L5-S1. Other disc spaces are maintained. Conus medullaris is normal in appearance terminating at the L1-L2 disc space level. No extra vertebral abnormality is observed. The patient is status post transpedicular screw and dorsal spine fusion across the L5-S1 disc level. Magnetic field susceptibility artifact obscures visualization of the neural foramina at L5-S1. There is no evidence of recurrent disc protrusion or central canal stenosis. A dorsal column stimulator is seen coiled within the dorsal extraspinal soft tissues at about the L1-2 level. This appears to enter the spinal canal and ascend from the T12-L1 interspinous or interlaminar level. At L4-5, there is broad-based right paracentral disc bulging indenting the ventral margin of the thecal sac. No central canal stenosis is seen. No neural foraminal narrowing is seen. At L3-4, there is facet hypertrophy mild to moderate in degree. Minimal disc bulging is seen. No thecal sac compression. At L2-3, there is no significant abnormality. The L1-2 level is unremarkable as well. Impression: Degenerative disc changes L4-5 and L5-S1. Status post L5-S1 transpedicular screw and dorsal spine fixation. No recurrent disc herniation seen. Right paracentral disc bulging L4-5. Dorsal column stimulator seen in the lower thoracic canal. No abnormal gadolinium enhancement seen. Signed by Collin Wagner MD 06/21/2017 04:12 P
== END ==
LOC: M PLARAD 11:06
PROVIDERS: ATTEND Nurse Practitioner Family
DX: M51.36 Other intervertebral disc degeneration, lumbar region (principal); M51.37 Other intervertebral disc degeneration, lumbosacral region; Z98.1 Arthrodesis status; M51.06 Intervertebral disc disorders with myelopathy, lumbar region; Z96.9 Presence of functional implant, unspecified

== ENCOUNTER → 2017-08-25 | Outpatient (CLI) | payer MEDICARE | LOC: M PAIN 13:30 | DX: M96.1 Postlaminectomy syndrome, not elsewhere classified (principal); M79.7 Fibromyalgia; F31.9 Bipolar disorder, unspecified; Z79.899 Other long term (current) drug therapy; Z88.8 Allergy status to other drugs, medicaments and biological substances | CPT/HCPCS: 83036; G0463 ==

== ENCOUNTER → 2017-08-25 | Outpatient (CLI) | payer MEDICARE ==
[2017-08-25 13:06] LABS: APPEARANCE, URINE CLEAR (CLEAR); BACTERIA, URINE AUTO NEGATIVE (NEGATIVE); BILIRUBIN, URINE AUTO NEGATIVE (NEGATIVE); BLOOD, URINE BLOOD NEGATIVE (NEGATIVE); COLOR, URINE YELLOW (YELLOW); GLUCOSE, URINE (UA) AUTO NEGATIVE (NEGATIVE); KETONE, URINE AUTO NEGATIVE (NEGATIVE); LEUKOCYTE ESTERASE, URINE AUTO 1+ (NEGATIVE); NITRITE, URINE AUTO NEGATIVE (NEGATIVE); PROTEIN, URINE AUTO NEGATIVE (NEGATIVE); RBC, URINE AUTO 1 /HPF (0-3); SPECIFIC GRAVITY URINE AUTO 1.015 (1.002-1.035); SQUAMOUS EPITHELIAL CELL UR AU 1 /HPF (0-6); WBC, URINE AUTO 2 /HPF (0-3)
[2017-08-25 13:13] LABS: OSMOLALITY URINE 529 MOSM/KG (500-800)
[2017-08-25 13:30] LABS: ANION GAP 8 MEQ/L (8-16); BLOOD UREA NITROGEN 21 MG/DL (7-18); CALCIUM LEVEL 8.3 MG/DL (8.5-10.1); CARBON DIOXIDE LEVEL 29 MEQ/L (21-32); CHLORIDE LEVEL 102 MEQ/L (98-107); CHOLESTEROL LEVEL 130 MG/DL (<200); CHOLESTEROL RISK RATIO 2.549 (<5); CREATININE FOR GFR 0.99 MG/DL (0.55-1.30); GLOMERULAR FILTRATION RATE > 60.0 (>51); GLUCOSE, FASTING 81 MG/DL (70-100); HDL CHOLESTEROL 51 MG/DL (>40); LDL CHOLESTEROL 35.2 MG/DL (<100); NON-HDL-C 79 MG/DL; POTASSIUM SERUM 3.1 MEQ/L (3.5-5.1); SODIUM LEVEL 139 MEQ/L (136-145); TRIGLYCERIDES LEVEL 219 MG/DL (<150)
[2017-08-25 14:32] LABS: ESTIMATED AVERAGE GLUCOSE 111 MG/DL (60-110); HEMOGLOBIN A1c 5.5 %
== END ==
LOC: M LAB 12:33
DX: R60.0 Localized edema (principal)
CPT/HCPCS: 83036

== ENCOUNTER → 2017-09-07 | Outpatient (CLI) | payer MEDICARE ==
[~2017-09-07] MED LIST changes: -/CELE20CA; -/CELE20CA PO; -/FENT25PA; -/FENT75PA; -/LOR25TA PO; -/PANT40TA OR; -/QUET25TA OR; -ABIL20TA2; -ACET500C; -ACET500C OR; -AMIT25TA PO; -ARTANE; -ATIV1TAB2 OR; -BACL10TA2 OR; +BUPIVACAINE HCL 0.25% 10 ML VIAL As Ordered; +BUPIVACAINE HCL 0.25% 30 ML VIAL As Ordered; -BUSP10TA2 OR; -BUSP15TA OR; -BUSP30TA OR; -CELE100C; -CELE10TA; -CELE10TA OR; -CELE40TA; -CETI10TA OR; -CHLO10TA4 OR; -CHLORPROMAZINE PO; -CITALOPRAM; -CLON0.5T; -CYMB1CAP PO; -CYPROHEPTADINE; -DESIPRAMINE OR; -DICL25TA OR; -DICLOFENAC PO; -DOXE25CA2 OR; -DRIS50002 PO; -DULO20CA OR; -ETOD400T PO; -FOLI1TAB; -GABA300C2 PO; -GABAPOW41; -GEOD20CA14 OR; -HYDR-2808 PO; -HYDR5TAB23 PO; -IMIT4KIT2 SC; -IMIT6INJ INJ; -IMIT6INJ SC; -KLON0.5T OR; -KLON1TAB OR; -LAMI25TA PO; -LIDO5DIS; -LITH300C PO; -LITH300T2; -LYRI75CA OR; -MACR100C3 PO; -MACR50CA OR; -MELATONIN PO; -MORP1CAP7 PO; -NAPR500T; -NAPR500T PO; -NEUR100C; -NEUR300C OR; -NEUR400C; -NEUR400C OR; -NEUR600T OR; -OMEP20CA3 PO; -OPAN5TAB3 PO; -PAXI20TA OR; -PERC10TA26 PO; -PERC7.5T PO; -PERC7.5T12 PO; -PERPHEN AMITRIP; -POTA20TA4 PO; -PRAZ1CAP PO; -PRAZ5CAP PO; -PREG100CA PO; -PROC5TA PO; -PROM25TA PO; -PROP20TA5 PO; -PROP60TA; -REGL10TA6 PO; -REME45TA OR; -REST30CA; -REST7.5C8 OR; -ROBA500T PO; -SOMA350T PO; -SUBO8MIS SL; -SULI150T PO; -TOPA100T PO; -TOPA200T PO; -TOPI100T; -TOPI25TA2 OR; -TOPI50TA; -TRAM100T; -TRAM50TA2; -TRAM50TA2 OR; -TRAZ100T; -TRAZ10TA PO; -TRAZ150T; -TRAZ300T2; -TRAZ300T2 OR; +TRIAMCINOLONE ACETONIDE SUSP 40 MG/ML VIAL (J3301) As Ordered; -TYLE500T53; -VALI5TAB; -VENL37TA PO; -VENL75TA2 PO; -VICO5TAB OR; -VICODINES TAB OR; -VITA100T; -ZYPR5TAB2 PO; -ambien PO; +diazePAM 5 MG TAB As Ordered; +diphenhydrAMINE 25 MG CAP As Ordered; -effexor PO; -melatonin OR; +oxyCODONE 5MG TAB As Ordered; -voltaren PO
== END ==
LOC: M PAIN 13:45
DX: G89.29 Other chronic pain (principal); M79.1 Myalgia; F31.9 Bipolar disorder, unspecified; F43.10 Post-traumatic stress disorder, unspecified; G43.909 Migraine, unspecified, not intractable, without status migrainosus; Z79.899 Other long term (current) drug therapy; Z88.6 Allergy status to analgesic agent; Z88.8 Allergy status to other drugs, medicaments and biological substances
CPT/HCPCS: J3301

== ENCOUNTER 2018-01-10 09:59 | Emergency (ER) | payer MEDICARE ==
[2018-01-10 11:15] LABS: BASO % 0.7 % (0.0-1.0); EOS # 0.1 10^3/uL (0.0-0.50); HEMATOCRIT 41.4 % (36.0-47.0); HEMOGLOBIN 13.7 g/dl (12.0-15.5); IMMATURE GRANULOCYTE % 0.3 % (0-3.0); LYMPH # 1.6 10^3/uL (1.5-4.5); LYMPH % 26.4 % (24.0-44.0); MEAN CORPUSCULAR HEMOGLOBIN 28.5 pg (27.0-33.0); MEAN CORPUSCULAR HGB CONC 33.1 g/dl (32.0-36.5); MEAN CORPUSCULAR VOLUME 86.1 fl (80.0-96.0); MONO # 0.4 10^3/uL (0.0-0.8); MONO % 6.6 % (0.0-5.0); NEUTROPHILS # 3.9 10^3/uL (1.8-7.7); PLATELET COUNT, AUTOMATED 342 10^3/uL (150-450); RED BLOOD COUNT 4.81 10^6/uL (4.00-5.40); RED CELL DISTRIBUTION WIDTH 12.9 % (11.5-14.5); WHITE BLOOD COUNT 5.9 10^3/uL (4.0-10.0)
[2018-01-10 11:42] LABS: ALBUMIN 3.9 GM/DL (3.2-5.2); ALBUMIN/GLOBULIN RATIO 0.98 (1.00-1.93); ALKALINE PHOSPHATASE 104 U/L (45-117); ALT/SGPT 22 U/L (12-78); ANION GAP 6 MEQ/L (8-16); AST/SGOT 15 U/L (7-37); BILIRUBIN,DIRECT 0.1 MG/DL (0.0-0.2); BILIRUBIN,TOTAL 0.4 MG/DL (0.2-1.0); BLOOD UREA NITROGEN 10 MG/DL (7-18); CALCIUM LEVEL 8.1 MG/DL (8.5-10.1); CARBON DIOXIDE LEVEL 33 MEQ/L (21-32); CHLORIDE LEVEL 102 MEQ/L (98-107); CREATININE FOR GFR 1.06 MG/DL (0.55-1.30); GLOMERULAR FILTRATION RATE 58.2 (>51); GLUCOSE, FASTING 93 MG/DL (70-100); MAGNESIUM LEVEL 1.9 MG/DL (1.8-2.4); POTASSIUM SERUM 3.2 MEQ/L (3.5-5.1); SODIUM LEVEL 141 MEQ/L (136-145); TOTAL PROTEIN 7.9 GM/DL (6.4-8.2)
[2018-01-10 12:06] LABS: AMPHETAMINES LEVEL URINE NEGATIVE (NEGATIVE); BARBITURATES URINE NEGATIVE (NEGATIVE); CANNABINOIDS URINE NEGATIVE (NEGATIVE); COCAINE METABOLITE URINE NEGATIVE (NEGATIVE); METHADONE URINE NEGATIVE (NEGATIVE); OPIATES URINE NEGATIVE (NEGATIVE); PHENCYCLIDINE URINE NEGATIVE (NEGATIVE)
[2018-01-10] MEDS: POTASSIUM CHLORIDE 10 MEQ SR TABLET PO (12:08)
[2018-01-10 12:20] LABS: BENZODIAZEPINES URINE NEGATIVE (NEGATIVE)
[2018-01-10] MEDS: ACETAMINOPHEN TAB 650MG DOSE (2X325MG) PO (13:31)
[2018-01-10 13:47] LABS: KETONE, URINE AUTO RFX NEGATIVE (NEGATIVE); LEUKOCYTE ESTERASE UR AUTO RFX NEGATIVE (NEGATIVE); NITRITE, URINE AUTO RFX NEGATIVE (NEGATIVE); RBC, URINE AUTO RFX 1 /HPF (0-3); SPECIFIC GRAVITY UR AUTO RFX 1.005 (1.002-1.035); SQUAM EPITHELIAL CELL UR AURFX 1 /HPF (0-6); WBC, URINE AUTO RFX 1 /HPF (0-3)
[2018-01-10] MEDS: LORazepam 2 MG/ML VIAL (J2060) IV (14:39)
== END 2018-01-10 16:52 | disposition home or self-care (01) ==
LOC: M ED 09:59
DX: R53.1 Weakness (principal); R47.81 Slurred speech; H53.8 Other visual disturbances; F31.9 Bipolar disorder, unspecified; F43.10 Post-traumatic stress disorder, unspecified; M79.7 Fibromyalgia; M54.9 Dorsalgia, unspecified; G89.29 Other chronic pain; Z79.899 Other long term (current) drug therapy; Z88.8 Allergy status to other drugs, medicaments and biological substances

== ENCOUNTER 2018-01-13 10:22 | Inpatient (IN) | payer MEDICARE ==
[2018-01-13 13:01] LABS: BASO % 0.7 % (0.0-1.0); EOS # 0.1 10^3/uL (0.0-0.50); EOS % 1.2 % (0.0-3.0); HEMATOCRIT 38.5 % (36.0-47.0); HEMOGLOBIN 12.7 g/dl (12.0-15.5); IMMATURE GRANULOCYTE % 0.2 % (0-3.0); LYMPH % 35.1 % (24.0-44.0); MEAN CORPUSCULAR HEMOGLOBIN 28.8 pg (27.0-33.0); MEAN CORPUSCULAR VOLUME 87.3 fl (80.0-96.0); MONO # 0.4 10^3/uL (0.0-0.8); MONO % 6.6 % (0.0-5.0); NEUTROPHILS # 3.2 10^3/uL (1.8-7.7); NEUTROPHILS % 56.2 % (36.0-66.0); PLATELET COUNT, AUTOMATED 275 10^3/uL (150-450); RED BLOOD COUNT 4.41 10^6/uL (4.00-5.40); RED CELL DISTRIBUTION WIDTH 12.8 % (11.5-14.5); WHITE BLOOD COUNT 5.8 10^3/uL (4.0-10.0)
[2018-01-13 13:12] LABS: INR 0.97
[2018-01-13 13:13] LABS: PARTIAL THROMBOPLASTIN TIME 32.1 SECONDS (25.4-37.6)
[2018-01-13 13:23] LABS: ANION GAP 6 MEQ/L (8-16); BLOOD UREA NITROGEN 12 MG/DL (7-18); CALCIUM LEVEL 8.5 MG/DL (8.5-10.1); CARBON DIOXIDE LEVEL 31 MEQ/L (21-32); CHLORIDE LEVEL 103 MEQ/L (98-107); CPK CREATINE PHOSPHOKINASE 69 U/L (26-192); CREATININE FOR GFR 1.02 MG/DL (0.55-1.30); GLOMERULAR FILTRATION RATE > 60.0 (>51); GLUCOSE, FASTING 92 MG/DL (70-100); POTASSIUM SERUM 3.5 MEQ/L (3.5-5.1); SODIUM LEVEL 140 MEQ/L (136-145); TROPONIN I < 0.02 NG/ML (< 0.10)
[2018-01-13 13:24] LABS: CK-MB VALUE MASS < 1.0 NG/ML (<3.6); MB/CK RELATIVE INDEX 1.44 (< OR =4)
[2018-01-13] MEDS: ASPIRIN 325 MG TAB PO (14:16)
[2018-01-13] MEDS: BUPRENORPHINE/NALOXONE 8-2MG SUBLINGUAL TABLET(SUBOXONE) SL ×2 (16:58→20:55)
[2018-01-13] MEDS: LORazepam 2 MG/ML VIAL (J2060) IV (20:30)
[2018-01-13] MEDS: lamoTRIgine 100MG TAB PO (20:56)
[2018-01-13] MEDS: PREGABALIN 75 MG CAP(LYRICA) PO (20:56)
[2018-01-13 21:00] LABS: HEMATOCRIT 37.1 % (36.0-47.0); HEMOGLOBIN 12.4 g/dl (12.0-15.5)
[2018-01-14 01:06] LABS: CHOLESTEROL LEVEL 177 MG/DL (<200); CHOLESTEROL RISK RATIO 2.528 (<5); HDL CHOLESTEROL 70 MG/DL (>40); LDL CHOLESTEROL 84.2 MG/DL (<100); NON-HDL-C 107 MG/DL; TRIGLYCERIDES LEVEL 114 MG/DL (<150)
[2018-01-14 02:29] LABS: HEMATOCRIT 36.1 % (36.0-47.0); HEMOGLOBIN 11.8 g/dl (12.0-15.5)
[2018-01-14 06:11] LABS: BASO # 0.1 10^3/uL (0.0-0.2); BASO % 0.9 % (0.0-1.0); EOS # 0.1 10^3/uL (0.0-0.50); EOS % 2.2 % (0.0-3.0); HEMATOCRIT 35.8 % (36.0-47.0); HEMOGLOBIN 11.6 g/dl (12.0-15.5); IMMATURE GRANULOCYTE % 0.2 % (0-3.0); LYMPH # 2.3 10^3/uL (1.5-4.5); LYMPH % 42.4 % (24.0-44.0); MEAN CORPUSCULAR HEMOGLOBIN 28.4 pg (27.0-33.0); MEAN CORPUSCULAR HGB CONC 32.4 g/dl (32.0-36.5); MEAN CORPUSCULAR VOLUME 87.7 fl (80.0-96.0); MONO # 0.4 10^3/uL (0.0-0.8); MONO % 7.1 % (0.0-5.0); NEUTROPHILS # 2.6 10^3/uL (1.8-7.7); NEUTROPHILS % 47.2 % (36.0-66.0); PLATELET COUNT, AUTOMATED 267 10^3/uL (150-450); RED BLOOD COUNT 4.08 10^6/uL (4.00-5.40); RED CELL DISTRIBUTION WIDTH 12.8 % (11.5-14.5); WHITE BLOOD COUNT 5.5 10^3/uL (4.0-10.0)
[2018-01-14 06:28] LABS: ANION GAP 6 MEQ/L (8-16); BLOOD UREA NITROGEN 11 MG/DL (7-18); CARBON DIOXIDE LEVEL 33 MEQ/L (21-32); CHLORIDE LEVEL 105 MEQ/L (98-107); CREATININE FOR GFR 0.91 MG/DL (0.55-1.30); GLOMERULAR FILTRATION RATE > 60.0 (>51); GLUCOSE, FASTING 92 MG/DL (70-100); MAGNESIUM LEVEL 2.1 MG/DL (1.8-2.4); POTASSIUM SERUM 3.3 MEQ/L (3.5-5.1); SODIUM LEVEL 144 MEQ/L (136-145)
[2018-01-14 08:27] LABS: HEMATOCRIT 35.5 % (36.0-47.0); HEMOGLOBIN 11.9 g/dl (12.0-15.5)
[2018-01-14] MEDS: PREGABALIN 75 MG CAP(LYRICA) PO ×2 (08:37→21:11)
[2018-01-14] MEDS: BUPRENORPHINE/NALOXONE 8-2MG SUBLINGUAL TABLET(SUBOXONE) SL ×3 (08:38→21:10)
[2018-01-14] MEDS: ASPIRIN 81 MG ENTERIC TAB PO (08:38)
[2018-01-14] MEDS: lamoTRIgine 100MG TAB PO ×2 (08:38→21:10)
[2018-01-14] MEDS: buPROPion **XL** TABLET 150MG (WELLBUTRIN XL) PO (08:38)
[2018-01-14] MEDS ORDERED: LORazepam 2 MG/ML VIAL (J2060) As Ordered (10:47)
[2018-01-14] MEDS: LORazepam 2 MG/ML VIAL (J2060) IV (10:52)
[2018-01-14 14:26] LABS: HEMATOCRIT 36.9 % (36.0-47.0); HEMOGLOBIN 12.2 g/dl (12.0-15.5)
[2018-01-14 16:23] LABS: TOTAL PROTEIN 6.3 GM/DL (6.4-8.2)
[2018-01-14 16:46] LABS: VITAMIN B12 LEVEL 424 PG/ML (247-911)
[2018-01-14] MEDS: ACETAMINOPHEN TAB 650MG DOSE (2X325MG) PO (17:19)
[2018-01-14] MEDS: POTASSIUM CHLORIDE 10 MEQ SR TABLET PO (17:20)
[2018-01-14 20:34] LABS: HEMATOCRIT 36.5 % (36.0-47.0)
[2018-01-15] MEDS: ACETAMINOPHEN TAB 650MG DOSE (2X325MG) PO (02:37)
[2018-01-15 03:43] LABS: BASO % 0.8 % (0.0-1.0); EOS # 0.1 10^3/uL (0.0-0.50); EOS % 2.5 % (0.0-3.0); HEMATOCRIT 34.9 % (36.0-47.0); HEMOGLOBIN 11.4 g/dl (12.0-15.5); IMMATURE GRANULOCYTE % 0.2 % (0-3.0); LYMPH # 2.5 10^3/uL (1.5-4.5); LYMPH % 47.4 % (24.0-44.0); MEAN CORPUSCULAR HEMOGLOBIN 28.7 pg (27.0-33.0); MEAN CORPUSCULAR HGB CONC 32.7 g/dl (32.0-36.5); MEAN CORPUSCULAR VOLUME 87.9 fl (80.0-96.0); MONO # 0.4 10^3/uL (0.0-0.8); MONO % 7.6 % (0.0-5.0); NEUTROPHILS # 2.2 10^3/uL (1.8-7.7); NEUTROPHILS % 41.5 % (36.0-66.0); PLATELET COUNT, AUTOMATED 240 10^3/uL (150-450); RED BLOOD COUNT 3.97 10^6/uL (4.00-5.40); RED CELL DISTRIBUTION WIDTH 12.9 % (11.5-14.5); WHITE BLOOD COUNT 5.3 10^3/uL (4.0-10.0)
[2018-01-15 04:00] LABS: ANION GAP 4 MEQ/L (8-16); BLOOD UREA NITROGEN 10 MG/DL (7-18); CARBON DIOXIDE LEVEL 31 MEQ/L (21-32); CHLORIDE LEVEL 108 MEQ/L (98-107); GLOMERULAR FILTRATION RATE > 60.0 (>51); GLUCOSE, FASTING 95 MG/DL (70-100); MAGNESIUM LEVEL 2.1 MG/DL (1.8-2.4); POTASSIUM SERUM 3.8 MEQ/L (3.5-5.1); SODIUM LEVEL 143 MEQ/L (136-145)
[2018-01-15] MEDS: lamoTRIgine 100MG TAB PO (09:54)
[2018-01-15] MEDS: BUPRENORPHINE/NALOXONE 8-2MG SUBLINGUAL TABLET(SUBOXONE) SL ×2 (09:54→16:07)
[2018-01-15] MEDS: buPROPion **XL** TABLET 150MG (WELLBUTRIN XL) PO (09:54)
[2018-01-15] MEDS: ASPIRIN 81 MG ENTERIC TAB PO (09:54)
[2018-01-15] MEDS: PREGABALIN 75 MG CAP(LYRICA) PO (09:54)
[2018-01-17 15:02] LABS: ALBUMIN 3.58 GM/DL (3.29-5.55); ALBUMIN % 56.9 % (55.8-66.1); ALPHA-1-GLOBULIN % 5.1 % (2.9-4.9); ALPHA-1-GLOBULINS 0.32 GM/DL (0.17-0.41); ALPHA-2-GLOBULINS 0.64 GM/DL (0.42-0.99); ALPHA-2-GLOBULINS % 10.2 % (7.1-11.8); BETA-1-GLOBULINS 0.43 GM/DL (0.28-0.60); BETA-1-GLOBULINS % 6.8 % (4.7-7.2); BETA-2-GLOBULINS 0.35 GM/DL (0.19-0.55); BETA-2-GLOBULINS % 5.5 % (3.2-6.5); GAMMA GLOBULIN % 15.5 % (11.1-18.8); GAMMA GLOBULINS 0.98 GM/DL (0.65-1.58)
[2018-01-17 15:03] LABS: SPEP INTERPRETATION SEE COMM
== END 2018-01-15 17:16 | disposition home or self-care (01) | DRG 948 ==
LOC: M ED 10:22 → M ED INP 15:12 → M PCU 16:48
DX: R53.1 Weakness (principal); F31.9 Bipolar disorder, unspecified; M79.7 Fibromyalgia; R47.81 Slurred speech; G43.709 Chronic migraine without aura, not intractable, without status migrainosus; H53.8 Other visual disturbances; Z79.899 Other long term (current) drug therapy; Z98.1 Arthrodesis status; Z88.8 Allergy status to other drugs, medicaments and biological substances

== ENCOUNTER → 2018-01-17 | Outpatient (CLI) | payer MEDICARE | LOC: M PAIN 14:15 | DX: M96.1 Postlaminectomy syndrome, not elsewhere classified (principal); M79.7 Fibromyalgia; F31.9 Bipolar disorder, unspecified; F43.10 Post-traumatic stress disorder, unspecified; M51.16 Intervertebral disc disorders with radiculopathy, lumbar region; R10.13 Epigastric pain; G43.709 Chronic migraine without aura, not intractable, without status migrainosus; Z79.899 Other long term (current) drug therapy; Z88.6 Allergy status to analgesic agent; Z88.8 Allergy status to other drugs, medicaments and biological substances | CPT/HCPCS: G0463 ==

== ENCOUNTER 2018-02-06 08:56 | Observation (INO) | payer MEDICARE ==
[2018-02-06 09:34] LABS: BASO # 0.1 10^3/uL (0.0-0.2); BASO % 0.9 % (0.0-1.0); EOS # 0.2 10^3/uL (0.0-0.50); EOS % 3.1 % (0.0-3.0); HEMATOCRIT 38.2 % (36.0-47.0); HEMOGLOBIN 12.6 g/dl (12.0-15.5); IMMATURE GRANULOCYTE % 0.3 % (0-3.0); LYMPH # 1.5 10^3/uL (1.5-4.5); LYMPH % 25.3 % (24.0-44.0); MEAN CORPUSCULAR HEMOGLOBIN 28.5 pg (27.0-33.0); MEAN CORPUSCULAR VOLUME 86.4 fl (80.0-96.0); MONO # 0.4 10^3/uL (0.0-0.8); MONO % 6.3 % (0.0-5.0); NEUTROPHILS # 3.8 10^3/uL (1.8-7.7); NEUTROPHILS % 64.1 % (36.0-66.0); PLATELET COUNT, AUTOMATED 294 10^3/uL (150-450); RED BLOOD COUNT 4.42 10^6/uL (4.00-5.40); RED CELL DISTRIBUTION WIDTH 13.2 % (11.5-14.5); WHITE BLOOD COUNT 5.9 10^3/uL (4.0-10.0)
[2018-02-06 09:41] LABS: BEDSIDE GLUCOSE 89 MG/DL (70-105)
[2018-02-06 09:46] LABS: INR 0.92; PROTHROMBIN TIME 12.4 SECONDS (12.1-14.4)
[2018-02-06 09:47] LABS: PARTIAL THROMBOPLASTIN TIME 31.4 SECONDS (25.4-37.6)
[2018-02-06 09:59] LABS: ANION GAP 7 MEQ/L (8-16); BLOOD UREA NITROGEN 10 MG/DL (7-18); CALCIUM LEVEL 8.1 MG/DL (8.5-10.1); CARBON DIOXIDE LEVEL 27 MEQ/L (21-32); CHLORIDE LEVEL 109 MEQ/L (98-107); CPK CREATINE PHOSPHOKINASE 60 U/L (26-192); CREATININE FOR GFR 0.99 MG/DL (0.55-1.30); FREE T4 0.97 NG/DL (0.76-1.46); GLOMERULAR FILTRATION RATE > 60.0 (>51); GLUCOSE, FASTING 89 MG/DL (70-100); MAGNESIUM LEVEL 2.2 MG/DL (1.8-2.4); PHOSPHORUS LEVEL 2.8 MG/DL (2.5-4.9); POTASSIUM SERUM 4.6 MEQ/L (3.5-5.1); SODIUM LEVEL 143 MEQ/L (136-145); TROPONIN I < 0.02 NG/ML (< 0.10)
[2018-02-06 10:05] LABS: CK-MB VALUE MASS < 1.0 NG/ML (<3.6); MB/CK RELATIVE INDEX 1.66 (< OR =4)
[2018-02-06 11:13] LABS: AMORPHOUS SEDIMENT RFX SMALL (NEGATIVE); KETONE, URINE AUTO RFX NEGATIVE (NEGATIVE); LEUKOCYTE ESTERASE UR AUTO RFX NEGATIVE (NEGATIVE); MUCUS, URINE RFX SMALL (NEGATIVE); NITRITE, URINE AUTO RFX NEGATIVE (NEGATIVE); RBC, URINE AUTO RFX 1 /HPF (0-3); SQUAM EPITHELIAL CELL UR AURFX 0 /HPF (0-6); WBC, URINE AUTO RFX 1 /HPF (0-3)
[2018-02-06 11:22] LABS: AMPHETAMINES LEVEL URINE NEGATIVE (NEGATIVE); BARBITURATES URINE NEGATIVE (NEGATIVE); BENZODIAZEPINES URINE NEGATIVE (NEGATIVE); CANNABINOIDS URINE POSITIVE (NEGATIVE); COCAINE METABOLITE URINE NEGATIVE (NEGATIVE); METHADONE URINE NEGATIVE (NEGATIVE); OPIATES URINE NEGATIVE (NEGATIVE); PHENCYCLIDINE URINE NEGATIVE (NEGATIVE)
[2018-02-06] MEDS: BUPRENORPHINE/NALOXONE 8-2MG SUBLINGUAL TABLET(SUBOXONE) SL ×4 (17:11→21:09)
[2018-02-06] MEDS: PREGABALIN 100 MG CAP (LYRICA) PO ×2 (21:09)
[2018-02-07] MEDS: ACETAMINOPHEN TAB 650MG DOSE (2X325MG) PO ×2 (03:13)
[2018-02-07 05:36] LABS: BASO # 0.1 10^3/uL (0.0-0.2); EOS # 0.2 10^3/uL (0.0-0.50); EOS % 4.2 % (0.0-3.0); HEMOGLOBIN 11.7 g/dl (12.0-15.5); IMMATURE GRANULOCYTE % 0.2 % (0-3.0); LYMPH % 35.7 % (24.0-44.0); MEAN CORPUSCULAR HEMOGLOBIN 28.7 pg (27.0-33.0); MEAN CORPUSCULAR HGB CONC 33.4 g/dl (32.0-36.5); MONO # 0.5 10^3/uL (0.0-0.8); MONO % 8.2 % (0.0-5.0); NEUTROPHILS # 2.9 10^3/uL (1.8-7.7); NEUTROPHILS % 50.7 % (36.0-66.0); PLATELET COUNT, AUTOMATED 244 10^3/uL (150-450); RED BLOOD COUNT 4.07 10^6/uL (4.00-5.40); RED CELL DISTRIBUTION WIDTH 13.4 % (11.5-14.5); WHITE BLOOD COUNT 5.7 10^3/uL (4.0-10.0)
[2018-02-07 06:01] LABS: ALBUMIN 3.1 GM/DL (3.2-5.2); ALBUMIN/GLOBULIN RATIO 0.89 (1.00-1.93); ALKALINE PHOSPHATASE 91 U/L (45-117); ALT/SGPT 21 U/L (12-78); ANION GAP 4 MEQ/L (8-16); AST/SGOT 12 U/L (7-37); BILIRUBIN,TOTAL 0.4 MG/DL (0.2-1.0); BLOOD UREA NITROGEN 9 MG/DL (7-18); CALCIUM LEVEL 7.9 MG/DL (8.5-10.1); CARBON DIOXIDE LEVEL 29 MEQ/L (21-32); CHLORIDE LEVEL 110 MEQ/L (98-107); CREATININE FOR GFR 0.84 MG/DL (0.55-1.30); GLOMERULAR FILTRATION RATE > 60.0 (>51); GLUCOSE, FASTING 82 MG/DL (70-100); POTASSIUM SERUM 4.1 MEQ/L (3.5-5.1); SODIUM LEVEL 143 MEQ/L (136-145); TOTAL PROTEIN 6.6 GM/DL (6.4-8.2)
[2018-02-07] MEDS: buPROPion **XL** TABLET 150MG (WELLBUTRIN XL) PO ×2 (09:38)
[2018-02-07] MEDS: BUPRENORPHINE/NALOXONE 8-2MG SUBLINGUAL TABLET(SUBOXONE) SL ×6 (09:38→20:17)
[2018-02-07] MEDS: PREGABALIN 100 MG CAP (LYRICA) PO ×4 (09:39→20:17)
[2018-02-07] MEDS: ENOXAPARIN 40 MG/0.4 ML SYRINGE (J1650) SC ×2 (09:40)
[2018-02-08] MEDS: ENOXAPARIN 40 MG/0.4 ML SYRINGE (J1650) SC ×2 (08:32)
[2018-02-08] MEDS: PREGABALIN 100 MG CAP (LYRICA) PO ×2 (08:32)
[2018-02-08] MEDS: buPROPion **XL** TABLET 150MG (WELLBUTRIN XL) PO ×2 (08:32)
[2018-02-08] MEDS: BUPRENORPHINE/NALOXONE 8-2MG SUBLINGUAL TABLET(SUBOXONE) SL ×2 (08:32)
== END 2018-02-08 10:46 | disposition home or self-care (01) ==
LOC: M ED 08:56 → M ED INP 13:25 → M MSPAV 15:45
DX: G25.5 Other chorea (principal); R29.6 Repeated falls; F31.9 Bipolar disorder, unspecified; F43.10 Post-traumatic stress disorder, unspecified; M50.30 Other cervical disc degeneration, unspecified cervical region; M51.34 Other intervertebral disc degeneration, thoracic region; M51.36 Other intervertebral disc degeneration, lumbar region; Z79.899 Other long term (current) drug therapy; Z91.81 History of falling; M79.7 Fibromyalgia
CPT/HCPCS: J1650

== ENCOUNTER → 2018-04-07 | Outpatient (CLI) | payer MEDICARE | LOC: M PAIN 14:30 | DX: M25.50 Pain in unspecified joint (principal); M96.1 Postlaminectomy syndrome, not elsewhere classified; M47.817 Spondylosis without myelopathy or radiculopathy, lumbosacral region; M79.7 Fibromyalgia; F31.9 Bipolar disorder, unspecified; F43.10 Post-traumatic stress disorder, unspecified; G43.909 Migraine, unspecified, not intractable, without status migrainosus; Z79.899 Other long term (current) drug therapy; Z91.81 History of falling; Z88.6 Allergy status to analgesic agent; Z88.8 Allergy status to other drugs, medicaments and biological substances | CPT/HCPCS: G0463 ==

== ENCOUNTER → 2018-04-21 | Outpatient (CLI) | payer MEDICARE ==
[2018-04-21 13:36] LABS: ALBUMIN 3.5 GM/DL (3.2-5.2); ALBUMIN/GLOBULIN RATIO 1.17 (1.00-1.93); ALKALINE PHOSPHATASE 88 U/L (45-117); ALT/SGPT 17 U/L (12-78); ANION GAP 6 MEQ/L (8-16); AST/SGOT 11 U/L (7-37); BILIRUBIN,TOTAL 0.4 MG/DL (0.2-1.0); BLOOD UREA NITROGEN 6 MG/DL (7-18); C REACTIVE PROTEIN QUANTITATIV 0.43 MG/DL (0.00-0.30); CALCIUM LEVEL 8.1 MG/DL (8.5-10.1); CARBON DIOXIDE LEVEL 27 MEQ/L (21-32); CHLORIDE LEVEL 110 MEQ/L (98-107); CREATININE FOR GFR 0.79 MG/DL (0.55-1.30); GLOMERULAR FILTRATION RATE > 60.0 (>51); GLUCOSE, FASTING 84 MG/DL (70-100); POTASSIUM SERUM 4.1 MEQ/L (3.5-5.1); RHEUMATOID FACTOR QUANT < 10.0 IU/ML (<15.0); SODIUM LEVEL 143 MEQ/L (136-145); TOTAL PROTEIN 6.5 GM/DL (6.4-8.2)
[2018-04-23 00:08] LABS: ANA (HEP2) Negative (.)
[2018-04-23 00:08] LABS: CYCLIC CITRULLINATED PEPTIDE 6 units (0-19)
== END ==
LOC: M LAB 12:32
DX: R60.1 Generalized edema (principal)
CPT/HCPCS: 80053

== ENCOUNTER → 2018-05-09 | Outpatient (CLI) | payer MEDICARE | LOC: M PAIN 13:15 | DX: R60.1 Generalized edema (principal); M25.50 Pain in unspecified joint; F43.10 Post-traumatic stress disorder, unspecified; G43.909 Migraine, unspecified, not intractable, without status migrainosus; M79.7 Fibromyalgia; F31.9 Bipolar disorder, unspecified; Z79.899 Other long term (current) drug therapy; Z88.6 Allergy status to analgesic agent; Z88.8 Allergy status to other drugs, medicaments and biological substances | CPT/HCPCS: G0463 ==

== ENCOUNTER 2018-07-10 12:32 | Emergency (ER) | payer MEDICARE ==
[~2018-07-10] VITALS: Ht 165.1 cm; Wt 81.8 kg
[~2018-07-10 12:32] MED LIST changes: +/CELE20CA; +/CELE20CA PO; +/FENT25PA; +/FENT75PA; +/LOR25TA PO; +/PANT40TA OR; +/QUET25TA OR; +ABIL20TA2; +ACET500C; +ACET500C OR; +AMIT25TA PO; +ARTANE; +ATIV1TAB2 OR; +BACL10TA2 OR; +BACL10TA2 PO; -BUPIVACAINE HCL 0.25% 10 ML VIAL As Ordered; -BUPIVACAINE HCL 0.25% 30 ML VIAL As Ordered; +BUPR150T3 PO; +BUSP10TA2 OR; +BUSP15TA OR; +BUSP30TA OR; +CELE100C; +CELE10TA; +CELE10TA OR; +CELE40TA; +CETI10TA OR; +CHLO10TA4 OR; +CHLORPROMAZINE PO; +CITALOPRAM; +CLON0.5T; +CYMB1CAP PO; +CYPROHEPTADINE; +DESIPRAMINE OR; +DICL25TA OR; +DICLOFENAC PO; +DOXE25CA2 OR; +DRIS50003 PO; +DULO20CA OR; +ETOD400T PO; +FOLI1TAB; +GABA300C2 PO; +GABAPOW41; +GEOD20CA14 OR; +HYDR-2808 PO; +HYDR5TAB23 PO; +IMIT4KIT2 SC; +IMIT6INJ INJ; +IMIT6INJ SC; +KLON0.5T OR; +KLON1TAB OR; +LAMI25TA PO; +LAMO150T2 PO; +LAMO200T2 PO; +LIDO5DIS; +LIDO5OIN28 TOP; +LITH300C PO; +LITH300T2; +LYRI200C PO; +LYRI225C PO; +LYRI75CA OR; +MACR100C3 PO; +MACR50CA OR; +MAG-400T7 PO; +MELATONIN PO; +MORP1CAP7 PO; +NAPR500T; +NAPR500T PO; +NEUR100C; +NEUR300C OR; +NEUR400C; +NEUR400C OR; +NEUR600T OR; +OMEP20CA3 PO; +OPAN5TAB3 PO; +PAXI20TA OR; +PERC10TA26 PO; +PERC7.5T PO; +PERC7.5T12 PO; +PERPHEN AMITRIP; +POTA20TA4 PO; +PRAZ1CAP PO; +PRAZ5CAP PO; +PREG100CA PO; +PROC5TA PO; +PROM25TA PO; +PROP20TA5 PO; +PROP60TA; +REGL10TA6 PO; +REME45TA OR; +REST30CA; +REST7.5C8 OR; +ROBA500T PO; +SOMA350T PO; +SUBO8MIS SL; +SULI150T PO; +TOPA100T PO; +TOPA200T PO; +TOPI100T; +TOPI25TA2 OR; +TOPI50TA; +TRAM100T; +TRAM50TA2; +TRAM50TA2 OR; +TRAZ100T; +TRAZ10TA PO; +TRAZ150T; +TRAZ300T2; +TRAZ300T2 OR; -TRIAMCINOLONE ACETONIDE SUSP 40 MG/ML VIAL (J3301) As Ordered; +TYLE500T53; +VALI5TAB; +VENL37TA PO; +VENL75TA2 PO; +VICO5TAB OR; +VICODINES TAB OR; +VITA100T; +WELLTAB38 PO; +WELLTAB40 PO; +ZYPR5TAB2 PO; +ambien PO; -diazePAM 5 MG TAB As Ordered; -diphenhydrAMINE 25 MG CAP As Ordered; +effexor PO; +melatonin OR; -oxyCODONE 5MG TAB As Ordered; +voltaren PO
[2018-07-10] MEDS ORDERED: FURO20TA2 PO (12:41)
[2018-07-10] MEDS ORDERED: TRAM1CAP15 PO (12:41)
[2018-07-10 13:30] VITALS: BP 126/66
== END 2018-07-10 14:11 | disposition home or self-care (01) ==
LOC: M ED 12:32
DX: R29.818 Other symptoms and signs involving the nervous system (principal); F31.9 Bipolar disorder, unspecified; M79.7 Fibromyalgia; K58.9 Irritable bowel syndrome, unspecified; E66.9 Obesity, unspecified; Z79.899 Other long term (current) drug therapy; Z79.891 Long term (current) use of opiate analgesic; Z88.8 Allergy status to other drugs, medicaments and biological substances

== ENCOUNTER 2018-07-19 16:46 | Emergency (ER) | payer MEDICARE ==
[~2018-07-19] VITALS: Ht 165.1 cm; Wt 79.5 kg
[~2018-07-19 16:46] MED LIST changes: +FURO20TA2 PO; +TRAM1CAP15 PO
[2018-07-19 17:14] LABS: BASO % 0.4 % (0.0-1.0); EOS # 0.1 10^3/uL (0.0-0.50); EOS % 0.7 % (0.0-3.0); HEMOGLOBIN 13.1 g/dl (12.0-15.5); LYMPH # 2.5 10^3/uL (1.5-4.5); MEAN CORPUSCULAR HEMOGLOBIN 28.1 pg (27.0-33.0); MEAN CORPUSCULAR HGB CONC 33.6 g/dl (32.0-36.5); MEAN CORPUSCULAR VOLUME 83.5 fl (80.0-96.0); MONO # 0.4 10^3/uL (0.0-0.8); MONO % 5.1 % (0.0-5.0); NEUTROPHILS # 4.4 10^3/uL (1.8-7.7); NEUTROPHILS % 59.5 % (36.0-66.0); PLATELET COUNT, AUTOMATED 310 10^3/uL (150-450); RED BLOOD COUNT 4.67 10^6/uL (4.00-5.40); WHITE BLOOD COUNT 7.5 10^3/uL (4.0-10.0)
[2018-07-19 17:35] LABS: BLOOD UREA NITROGEN 14 MG/DL (7-18); CALCIUM LEVEL 8.7 MG/DL (8.5-10.1); CARBON DIOXIDE LEVEL 28 MEQ/L (21-32); CHLORIDE LEVEL 100 MEQ/L (98-107); CPK CREATINE PHOSPHOKINASE 193 U/L (26-192); CREATININE FOR GFR 1.09 MG/DL (0.55-1.30); GLOMERULAR FILTRATION RATE 56.3 (>51); GLUCOSE, FASTING 82 MG/DL (70-100); MB/CK RELATIVE INDEX 2.02 (< OR =4); POTASSIUM SERUM 3.4 MEQ/L (3.5-5.1); SODIUM LEVEL 139 MEQ/L (136-145); TROPONIN I < 0.02 NG/ML (< 0.10)
--- NOTE | 2018-07-19 20:16 | REP ---
CHEST PA AND LATERAL: 07/19/2018. Comparison: 09/26/2013, portable chest 01/13/2018. Clinical history: Chest pain. Findings. Two-views show a dorsal column stimulator overlying the T6-7 level unchanged. Lungs are well inflated without pleural effusion, infiltrate, atelectasis or mass. Heart, mediastinal and hilar contours normal. Aorta and airway intact. No pneumothorax or free air under the diaphragm. Bony thorax shows no acute compression deformity or focal lesion. Impression: 1. No acute cardiopulmonary change. Dorsal column stimulator leads at the T6-7 level unchanged from prior study. Electronically Signed by Jaycob Arreaga MD 07/19/2018 08:54 P
--- NOTE | 2018-07-19 20:21 | ECGEPIP ---
Stationary ECG Study [facility] - ED Test Date: 2018-07-19 Pat Name: ANGIE ELLIS Department: Room: - Gender: F Intelligence Agent: [place] : 1965 Requested By: Dora Nunez Order Number: [id number] Reading MD: Dora Nunez Measurements Intervals [place] Rate: 69 P: -65 ND: 330 QRS: -19 QRSD: 104 T: 31 QT: 418 QTc: 449 Interpretive Statements NSR LAD NONSPECIFIC ST T WAVE CHANGES DELAYED R WAVE PROGRESSION C/W PULMONARY DISEASE CW 02/06/[address] T WAVE CHANGES Electronically Signed On 07-19-2018 20:20:55 EST by Dora Nunez
[2018-07-19 21:37] VITALS: BP 115/58
[2018-07-19 21:52] LABS: CPK CREATINE PHOSPHOKINASE 161 U/L (26-192); MB/CK RELATIVE INDEX 1.68 (< OR =4); TROPONIN I < 0.02 NG/ML (< 0.10)
--- NOTE | 2018-07-21 07:26 | ECGEPIP ---
Stationary ECG Study [facility] - ED Test Date: 2018-07-19 Pat Name: ANGIE ELLIS Department: Room: - Gender: F Physician Intensivist: chau : 1965 Requested By: PASTORA HENDERSON Order Number: [id number] Reading MD: Chester Jason Measurements Intervals [place] Rate: 46 P: 27 MD: 319 QRS: -17 QRSD: 111 T: 6 QT: 478 QTc: 421 Interpretive Statements SINUS BRADYCARDIA MODERATE INTRAVENTRICULAR CONDUCTION DELAY RATE CHANGE COMPARED TO PRIOR ON SAME DATE Electronically Signed On 07-21-2018 7:26:28 EST by Chester Jason
== END 2018-07-19 22:20 | disposition home or self-care (01) ==
LOC: M ED 16:46
DX: R07.89 Other chest pain (principal); M79.7 Fibromyalgia; F32.9 Major depressive disorder, single episode, unspecified; F41.9 Anxiety disorder, unspecified; R25.1 Tremor, unspecified; M54.9 Dorsalgia, unspecified; Z88.8 Allergy status to other drugs, medicaments and biological substances; Z79.899 Other long term (current) drug therapy; Z96.9 Presence of functional implant, unspecified

== ENCOUNTER → 2018-07-21 | Outpatient (CLI) | payer MEDICARE | LOC: M RAD 15:35 | PROVIDERS: ATTEND Family Medicine | DX: R25.1 Tremor, unspecified (principal) ==

== ENCOUNTER → 2018-07-22 | Outpatient (CLI) | payer MEDICARE ==
--- NOTE | 2018-07-22 15:17 | REP ---
MR BRAIN WITHOUT AND WITH CONTRAST: HISTORY: Tremor. CONTRAST: ProHance 16 mL COMPARISON: 01/14/2018 There are no areas of abnormal signal intensity in the brain. There is no intraparenchymal hemorrhage, infarct, mass or midline shift. There is no abnormal enhancement. The ventricular system is normal in appearance. There is no extracerebral collection. The sinuses are clear. IMPRESSION: There is no intracranial lesion. Electronically Signed by Yakov Wilson MD 07/22/2018 03:21 P
== END ==
LOC: M PLARAD 13:02
PROVIDERS: ATTEND Physician Assistant Medical
DX: R25.1 Tremor, unspecified (principal)

== ENCOUNTER → 2018-09-19 | Outpatient (CLI) | payer MEDICARE ==
--- NOTE | 2018-10-03 00:42 | ECWPNPC ---
PATIENT NAME: ANGIE ELLIS : 1965 GENDER: FEMALE VISIT DATE: 09/19/2018 DISCHARGE DATE: 09/19/18 1136 VISIT LOCKED DATE TIME: PHYSICIAN: DENVER MEDRANO MD RESOURCE: DENVER MEDRANO MD REASON FOR APPOINTMENT 1. BACK PAIN HISTORY OF PRESENT ILLNESS HISTORY OF PRESENT ILLNESS: PAIN THE PATIENT DESCRIBES THE PAIN... 52 YEAR OLD FEMALE PATIENT WITH A HISTORY OF CHRONIC LOW BACK AND NECK PAIN. THE PATIENT DESCRIBES THE PAIN ACHING, SORE, TENDER, STABBING, AND CONTINUOUS WITH A PAIN SCORE OF 6-8/10 DEPENDING ON PHYSICAL ACTIVITY. THE PATIENT SAYS THAT SHE HAS HAD THIS PAIN FOR MANY YEARS AND IT HAS WORSENED OVER TIME. THE PATIENT HAS A DCS IMPLANT AND SAYS THAT IT HELPS CONTROL HER PAIN. THE PATIENT IS ALSO USING MEDICAL MARIJUANA, LYRICA, AND SUBOXONE TO AID IN PAIN RELIEF. THE PATIENT SAYS THAT SHE HAS RECENTLY HAD AN INCREASE IN PAIN DOWN HER ARMS FROM HER NECK. PATIENT DENIES UNEXPLAINABLE WEIGHT LOSS, FEVER, CHILLS, NEW CHANGES ON HER URINARY OR BOWEL CONTROL. FALL RISK SCREENING: SCREENING : NO FALLS IN THE PAST YEAR. CURRENT MEDICATIONS TAKING SPIRONOLACTONE 25 MG TABLET 1/2 TABLET ORALLY DAILY TAKING SUBOXONE 8-2 MG FILM 3 APPLICATIONS SUBLINGUAL ONCE A DAY TAKING BACLOFEN 10 MG TABLET 1 TABLET WITH FOOD OR MILK ORALLY THREE TIMES A DAY TAKING BUPROPION HCL ER (SR) 150 MG TABLET EXTENDED RELEASE 12 HOUR 1 TABLET ORALLY DAILY TAKING LAMOTRIGINE 200 MG TABLET 3 TABS ORALLY ONCE DAILY TAKING MAY HAVE THC VAPE PRN TAKING LYRICA 200 MG CAPSULE 1 CAPSULE ORALLY TWICE A DAY MDD=2 TAKING ZOFRAN 4 MG TABLET 1-2 TABLETS ORALLY DAILY TAKING LASIX 20 MG TABLET 1 TABLET ORALLY ONCE A DAY TAKING PAXIL 10 MG TABLET 1 TABLET IN THE MORNING ORALLY ONCE A DAY NOT-TAKING IMITREX 25 MG TABLET 1/2 TABLET NEEDED ORALLY ONCE, MAY FINISH TAB. IF NOT BETTER IN 4 HOURS NOT-TAKING PROMETHAZINE HCL 12.5 MG TABLET 1 TABLET NEEDED ORALLY DAILY MEDICATION LIST REVIEWED AND RECONCILED WITH THE PATIENT PAST MEDICAL HISTORY BIPOLAR/DEPRESSION/PTSD- [facility] SEES CHRIS TABARES CHRONIC BACK PAIN/LUMBAR DISC PROTRUSION/ LUMBAR RADICULOPATHY- SURGERY PER DR ALEXANDRA- DAPHNE ON Feb-FUSION DYSPEPSIA CHRONIC HEADACHE/MIGRAINES FIBROMYALGIA NEW DAILY PERSISTENT HEADACHE OTHER SPECIFIED PRE-OPERATIVE EXAMINATION JAW PAIN POLYDIPSIA MEDICAL MARIJUANA CLINIC IN . CONCUSSION ALLERGIES HALDOL: ANXIOUS - SIDE EFFECTS THORAZINE: ANXIOUS - SIDE EFFECTS NSAIDS: LITHIUM BALANCE DISRUPTED - CONTRAINDICATION SURGICAL HISTORY EXCISION OF BONE SPUR RIGHT KNEE 1976 TUBAL LIGATION 1991 DORSAL COLUMN STIMULATOR JANUARY 2014 CALCIUM DEPOSIT REMOVAL R FOOT 06/20/2015 LEFT HEEL SPUR 08/2015 RIGHT HEEL SPUR 12/2015 PLATE AND SCREWS IN LEFT LUZWP-FGI-EU.FISH 05/20 FAMILY HISTORY FATHER: UNKNOWN MOTHER: UNKNOWN 3DAUGHTER(S) - HEALTHY. PT WAS ADOPTED. SOCIAL HISTORY GENERAL: TOBACCO USE ARE YOU A:NONSMOKER NEVER SMOKER LATEX QUESTIONNAIRE LATEX ALLERGY : HAVE YOU EVER DEVELOPED ANY TYPE OF REACTION AFTER HANDLING LATEX PRODUCTS SUCH RUBBER GLOVES, CONDOMS, DIAPHRAGMS, BALLOONS, SOCKS, OR UNDERWEAR?NO LATEX ALLERGY : HAVE YOU EVER DEVELOPED ANY TYPE OF REACTION DURING OR AFTER DENTAL APPOINTMENT, VAGINAL/RECTAL EXAMINATION, SURGICAL PROCEDURE, OR ANY OTHER EXPOSURE?NO LATEX RISK : HAVE YOU EVER HAD ANY DIFFICULTY BREATHING OR HIVES AFTER EATING OR HANDLING ANY FRUITS, OR VEGETABLES; SUCH KIWI, BANANAS, STONE FRUITS, OR CHESTNUTSNO LATEX RISK : DO YOU HAVE A PREVIOUS PERSONAL HISTORY OF MORE THAN NINE SURGERIES, SPINA BIFIDA, OR REPEATED CATHERTIZATIONS? NO LATEX RISK : ARE YOU FREQUENTLY EXPOSED TO LATEX PRODUCTS IN YOUR OCCUPATION?NO DATE ASKED : 09/08/2018 BMI CARE GOAL FOLLOW-UP ABOVE NORMAL BMI FOLLOW-UPGIVING ENCOURAGEMENT TO EXERCISE ALCOHOL SCREENING DID YOU HAVE A DRINK CONTAINING ALCOHOL IN THE PAST YEAR?NO POINTS0 INTERPRETATIONNEGATIVE RECREATIONAL DRUG USE DENIES. CAFFEINE 2-5/DAY. SEXUAL HX HAD SEX IN THE LAST 12 MONTHS (VAGINAL, ORAL, OR ANAL)?YES WITHMEN ONLY USE PROTECTION?NO HAVE YOU EVER HAD AN STD?NO LMP:03/22/18 HIV / HEP-C SCREENING HIV TEST OFFERED TO PATIENT:YES DATE OFFERED:09/15/2017 TEST ACCEPTED:NO REASON:PATIENT DECLINED BROCHURE PROVIDED TO PATIENTYES HEP-C TEST OFFERED TO PATIENT:YES DATE OFFERED:09/15/2017 TEST ACCEPTED:NO REASON:PATIENT DECLINED SYNAGOGUE [id number] NONE LANGUAGE LANGUAGES SPOKEN:NORTH KOREAN EDUCATION LEVEL OF EDUCATION:FINISHED HIGH SCHOOL LEARNING BARRIERS / SPECIAL NEEDS CHANGE FROM LAST VISIT?NO BARRIERS TO LEARNING?NO HEARING IMPAIRED?NO VISION IMPAIRED?YES :CORRECTIVE LENSES COGNITIVELY IMPAIRED?NO READINESS TO LEARN?YES LEARNING PREFERENCES?NO LEARNING CAPABILITIES PRESENT?YES EMOTIONAL BARRIERS?NO SPECIAL DEVICES?NO LICENSED ELECTRICIAN NEEDED?NO DOMESTIC VIOLENCE NONE. OCCUPATION: DISABLED D/T . DIET: REGULAR. SALAD, YOGURT, FRUIT, BAKED/GRILLED CHICKEN, . EXERCISE: NONE. MARITAL STATUS: . PAIN CLINIC PFS, CLERGY, PUBLIC HEALTH REFERRALS HAS THE PATIENT BEEN EDUCATED REGARDING HIS/HER PLAN OF CARE?YES HAS THE PATIENT BEEN EDUCATED REGARDING PAIN, THE RISK FOR PAIN, THE IMPORTANCE OF EFFECTIVE PAIN MANAGEMENT, AND THE PAIN ASSESSMENT PROCESS?YES ADVANCE DIRECTIVE ADVANCE DIRECTIVE DISCUSSED WITH PATIENT:YES HCP - [facility]IL[facility] ELLIS AND MARTIN MCCOY REVIEWED WITH PATIENT 09/19/18 1011 JS. HOSPITALIZATION/MAJOR DIAGNOSTIC PROCEDURE SEE ABOVE ACUTE ONSET BILATERAL LOWER EXTREMITY WEAKNESS 01/13/18-01/15/18 REVIEW OF SYSTEMS REVIEWED BY: PROVIDER: DENVER MEDRANO MD . CONSTITUTIONAL: ANY CHANGE IN YOUR MEDICAL CONDITION? NO . CHILLS NO . FEVER NO . INFECTION: DO YOU HAVE NEW INFECTIONS? NO . DO YOU HAVE HISTORY OF MRSA? NO . MUSCULOSKELETAL: ANY NEW PATTERNS OF PAIN OR NUMBNESS? NO . GASTROENTEROLOGY: ANY NEW CHANGE IN BOWEL CONTROL? NO . GENITOURINARY: ANY NEW CHANGE IN BLADDER CONTROL? NO . IS THERE A CHANCE YOU COULD BE ? NO . HEMATOLOGY/LYMPH: DO YOU TAKE ANY BLOOD THINNERS? (FOR EXAMPLE- COUMADIN, PLAVIX, AGGRENOX, PLATEL, PRADAXA, OR XARELTO) NO . WHEN WAS YOUR LAST DOSE? DATE: TIME: . NEUROLOGY: HAVE YOU FALLEN IN THE PAST 12 MONTHS? YES, STATES MULTIPLE FALLS DUE TO BOTH LEGS GIVING OUT ON HER. STATES IT HAPPENS OFTEN . ANY NEW EXTREMITY NUMBNESS OR WEAKNESS? NO . CARDIOLOGY: DO YOU HAVE A PACEMAKER OR DEFIBRILLATOR? NO . RESPIRATORY: HAVE YOU BEEN SICK IN THE PAST WEEK? NO . FEVER NO . FLU LIKE SYMPTOMS? NO . COUGH NO . INTEGUMENTARY: DO YOU HAVE ANY RASHES OR OPEN SORES? NO . ALLERGIC/IMMUNO: ARE YOU ALLERGIC TO IV DYE? NO . ANY NEW ALLERGIES? NO . PSYCHIATRIC: DO YOU HAVE THOUGHTS OF HURTING YOURSELF OR SOMEONE ELSE? NO . ARE YOU ABUSED, NEGLECTED, OR IN AN UNSAFE ENVIRONMENT? NO . ENDOCRINOLOGY: ARE YOU DIABETIC? NO . OTHER: DO YOU NEED ANY PRESCRIPTIONS? YES . IF YES, PLEASE LIST: ____LYRICA . ANY NEW PROBLEMS WITH YOUR MEDICATIONS? NO . WHEN DID YOU LAST EAT? ____ . WHEN DID YOU LAST DRINK? ____ . WHAT DID YOU LAST DRINK? ____ . NAME OF PERSON DRIVING YOU HOME? ____ . DO YOU HAVE ANY OTHER QUESTIONS OR CONCERNS NO . VITAL SIGNS WT 177.2 LBS, HT 65 IN, BMI 29.48 INDEX, BP 114/62 MM HG, HR 57 /MIN, RR 18 /MIN, TEMP 97.0 F, OXYGEN SAT % 98%, SAFE IN ENV? (Y/N) YES, NA INITIALS AW 0950, REVIEWED BY: JS. EXAMINATION GENERAL EXAMINATION: PATIENT IS ALERT O X 3 AND COOPERATIVE. LUNGS CLEAR, TO AUSCULTATION. HEART: NO MURMURS OR GALLOPS; FACIAL CRANIAL NERVES ARE GROSSLY NORMAL. GOOD SYMMETRY OF FACIAL MUSCLE MOVEMENT. NORMAL VISUAL KENNY. ANTALGIC GAIT. TENDERNESS OVER THE SACROILIAC JOINT. FABERE TEST IS POSITIVE FOR BILATERAL SACROILIAC JOINT DYSFUNCTION. MRI OF THE LUMBAR SPINE DONE ON 06/21/2017 SHOWS FACET ARTHROPATHY CHANGES AT MULTIPLE LEVELS. MRI OF THE CERVICAL SPINE DONE ON 06/07/2013 SHOWS BULGING DISCS AT MULTIPLE LEVELS. ASSESSMENTS SACROILIITIS, NOT ELSEWHERE CLASSIFIED - M46.1 (PRIMARY) CERVICAL RADICULOPATHY - M54.12 TREATMENT SACROILIITIS, NOT ELSEWHERE CLASSIFIED CLINICAL NOTES: WE DISCUSSED SEVERAL ISSUES WITH MRS. ELLIS'S PAIN MANAGEMENT CASE. DUE TO THE SACROILIITIS, I WOULD LIKE TO MOVE FORWARD WITH A BILATERAL SACROILIAC JOINT BLOCK AT THIS TIME. WE DISCUSSED THE BENEFITS, RISKS, AND ALTERNATIVES OF THE INJECTION AND THE PATIENT WOULD LIKE TO PROCEED. THE PATIENT WOULD LIKE TO MOVE FORWARD WITH IV SEDATION DUE TO PAIN AND ANXIETY ASSOCIATED WITH THE PROCEDURE. I WOULD LIKE TO ORDER A CERVICAL MRI DUE TO THE PATIENT'S INCREASE IN PAIN DOWN HER ARMS AND HER PREVIOUS MRI IS FROM 6 YEARS AGO. THE PATIENT WILL CONTINUE WITH THE SAME MEDICATION REGIMENT. THE PATIENT WILL FOLLOW UP A FEW WEEKS AFTER THE INJECTION. INSTRUCTIONS WERE GIVEN, QUESTIONS WERE ANSWERED, PATIENT REPORTS UNDERSTANDING AND AGREES WITH THE PLAN. I, EDWARD OTERO, DOCUMENTED THE ABOVE INFORMATION ACTING A SCRIBE FOR DR. MEDRANO. I HAVE REVIEWED THE ABOVE DOCUMENT, WRITTEN BY EDWARD GREENWOOD AND I VERIFY THAT IT IS ACCURATE. . PREVENTIVE MEDICINE PAIN CLINIC TEACHING: PROCEDURE TEACHING HANDOUT ON SACROILIAC JOINT INJECTION PROCEDURE GIVEN TO PATIENT AND REVIEWED WITH PATIENT. ALSO REVIEWED PRE-PROCEDURE INSTRUCTIONS. PATIENT VERBALIZED AN UNDERSTANDING. KRISTI SPENCER 09/19/2018 11:44:07 AM > . PROCEDURE CODES FA211 ESTABILISHED PATIENT [facility] CHARGE G8427 CURRENT MEDS W/DOSAGES DOCUMENTED G8730 PAIN ASSESS POS TOOL F/U PLAN DOC DISPOSITION & COMMUNICATION FOLLOW UP 4 WEEKS (REASON: BILATERAL SIJ W/ IV SEDATION (PRE OP DONE)) ELECTRONICALLY SIGNED BY DENVER MEDRANO MD, MD ON 10/02/2018 AT 06:51 PM EDT DISCLAIMER : THIS IS A VISIT SUMMARY EXTRACTED FROM THE [employer] CHART. IT IS NOT A COPY OF THE [employer] PROGRESS NOTE. RERED
== END ==
LOC: M PAIN 10:00
PROVIDERS: ATTEND Anesthesiology
DX: M46.1 Sacroiliitis, not elsewhere classified (principal); M54.12 Radiculopathy, cervical region; G89.29 Other chronic pain; G43.909 Migraine, unspecified, not intractable, without status migrainosus; M79.7 Fibromyalgia; Z79.899 Other long term (current) drug therapy; Z91.81 History of falling; Z88.6 Allergy status to analgesic agent; Z88.8 Allergy status to other drugs, medicaments and biological substances; Z86.59 Personal history of other mental and behavioral disorders; Z87.820 Personal history of traumatic brain injury

== ENCOUNTER 2018-10-25 06:22 | Emergency (ER) | payer MEDICARE ==
[~2018-10-25] VITALS: Ht 165.1 cm; Wt 75.9 kg
[~2018-10-25 06:22] MED LIST changes: -/CELE20CA; -/CELE20CA PO; -/FENT25PA; -/FENT75PA; -/PANT40TA OR; -/QUET25TA OR; +CELE1CAP4; +CELE1CAP4 PO; +CYMB1CAP4 OR; -DULO20CA OR; +FENT1DIS14; +FENT1DIS16; +PROM-190 PO; -PROM25TA PO; +PROT1TAB2 OR; +SERO1TAB3 OR
[2018-10-25] MEDS ORDERED: TRAZ-160 PO (06:32)
[2018-10-25] MEDS ORDERED: PAXI10TA12 PO (06:32)
[2018-10-25] MEDS ORDERED: PANTOPRAZOLE 40MG INJ (PROTONIX) (C9113) IV ONE (07:15)
[2018-10-25] MEDS ORDERED: ONDANSETRON 4MG/2ML VIAL (J2405) IV ONE ×2 (07:15→10:30)
[2018-10-25] MEDS ORDERED: NS 1,000 ML IV ONE (07:15)
[2018-10-25 07:31] LABS: BASO % 0.2 % (0.0-1.0); EOS % 0.1 % (0.0-3.0); HEMATOCRIT 39.6 % (36.0-47.0); HEMOGLOBIN 13.4 g/dl (12.0-15.5); LYMPH # 0.9 10^3/uL (1.5-4.5); LYMPH % 10.7 % (24.0-44.0); MEAN CORPUSCULAR HEMOGLOBIN 28.9 pg (27.0-33.0); MEAN CORPUSCULAR HGB CONC 33.8 g/dl (32.0-36.5); MEAN CORPUSCULAR VOLUME 85.3 fl (80.0-96.0); MONO # 0.1 10^3/uL (0.0-0.8); MONO % 1.6 % (0.0-5.0); NEUTROPHILS # 7.2 10^3/uL (1.8-7.7); NEUTROPHILS % 87.2 % (36.0-66.0); PLATELET COUNT, AUTOMATED 267 10^3/uL (150-450); RED BLOOD COUNT 4.64 10^6/uL (4.00-5.40); WHITE BLOOD COUNT 8.3 10^3/uL (4.0-10.0)
[2018-10-25 07:33] LABS: APPEARANCE, URINE HAZY (CLEAR); BACTERIA, URINE AUTO NEGATIVE (NEGATIVE); BILIRUBIN, URINE AUTO NEGATIVE (NEGATIVE); BLOOD, URINE BLOOD NEGATIVE (NEGATIVE); COLOR, URINE YELLOW (YELLOW); GLUCOSE, URINE (UA) AUTO NEGATIVE (NEGATIVE); KETONE, URINE AUTO 2+ mg/dL (NEGATIVE); LEUKOCYTE ESTERASE, URINE AUTO NEGATIVE (NEGATIVE); NITRITE, URINE AUTO NEGATIVE (NEGATIVE); PROTEIN, URINE AUTO NEGATIVE (NEGATIVE); RBC, URINE AUTO 2 /HPF (0-3); SPECIFIC GRAVITY URINE AUTO 1.009 (1.002-1.035); SQUAMOUS EPITHELIAL CELL UR AU 14 /HPF (0-6); UROBILINOGEN, URINE AUTO 0.2 mg/dL (0.0-2.0); WBC, URINE AUTO 1 /HPF (0-3)
[2018-10-25 08:00] LABS: ALBUMIN 3.6 GM/DL (3.2-5.2); ALT/SGPT 16 U/L (12-78); AMYLASE 48 U/L (25-115); BILIRUBIN,DIRECT 0.1 MG/DL (0.0-0.2); BILIRUBIN,TOTAL 0.5 MG/DL (0.2-1.0); BLOOD UREA NITROGEN 7 MG/DL (7-18); CALCIUM LEVEL 8.1 MG/DL (8.5-10.1); CARBON DIOXIDE LEVEL 23 MEQ/L (21-32); CHLORIDE LEVEL 109 MEQ/L (98-107); CREATININE FOR GFR 0.66 MG/DL (0.55-1.30); GLOMERULAR FILTRATION RATE > 60.0 (>51); GLUCOSE, FASTING 115 MG/DL (70-100); LIPASE 74 U/L (73-393); POTASSIUM SERUM 3.3 MEQ/L (3.5-5.1); SODIUM LEVEL 140 MEQ/L (136-145)
[2018-10-25] MEDS ORDERED: KETOROLAC 30 MG/ML VIAL (J1885) IV ONE (08:30)
[2018-10-25 09:00] LABS: INFLUENZA A AMPLIFICATION NEGATIVE (NEGATIVE); INFLUENZA B AMPLIFICATION NEGATIVE (NEGATIVE)
[2018-10-25] MEDS: GI COCKTAIL 50ML BTL(HYOSCYAMINE/MAALOX/LIDOCAINE VISCOUS)(1:3:1) PO ONE ×2 (09:18→09:19)
[2018-10-25] MEDS ORDERED: NACL IV ONE (09:30)
[2018-10-25] MEDS ORDERED: DILUENT IV ONE (09:30)
[2018-10-25] MEDS ORDERED: KETAMINE IV ONE (09:30)
[2018-10-25] MEDS ORDERED: ONDA4TAB6 PO (10:03)
[2018-10-25] MEDS ORDERED: SIME180C PO (10:03)
[2018-10-25] MEDS ORDERED: PROT1TAB2 PO (10:03)
[2018-10-25 11:05] VITALS: BP 133/62
== END 2018-10-25 11:06 | disposition home or self-care (01) ==
LOC: M ED 06:22
DX: E86.0 Dehydration (principal); M79.7 Fibromyalgia; F33.9 Major depressive disorder, recurrent, unspecified; F41.9 Anxiety disorder, unspecified; Z79.899 Other long term (current) drug therapy; Z79.890 Hormone replacement therapy; Z88.8 Allergy status to other drugs, medicaments and biological substances
CPT/HCPCS: 36415; 80048; 80076; 81001; 82150; 83690; 85025; 87502; 96361; 96374; 96375; 96376; 99284; C9113; J1885; J2405

== ENCOUNTER → 2018-11-11 | Outpatient (CLI) | payer MEDICARE ==
[~2018-11-11] MED LIST changes: +ONDA4TAB6 PO; +PAXI10TA12 PO; +PROT1TAB2 PO; +SIME180C PO; +TRAZ-160 PO
--- NOTE | 2018-11-11 16:54 | REP ---
MRI cervical spine without contrast: History: Neck pain. Comparison MRI study is from June 07, 2013. This was read as showing a small cervical spinal cord syrinx. Technique: Sagittal and axial T1 and T2-weighted scans are acquired in the usual fashion with and without fat saturation. Sequences include spin echo, turbo spin-echo, and STIR imaging sequences. MRI findings: There is straightening of the normal cervical lordosis unchanged. Cervical vertebral body heights are preserved. Alignment is normal. Cortical and medullary bone signal intensity are normal. No bony destructive lesion is seen. A lower cervical spine cord syrinx is seen. This measures 15 mm in craniocaudal span by 4 mm medial to lateral by 3 mm anteroposterior. It is felt to be unchanged from the prior study in 2013. There is no evidence of spinal cord atrophy or enlargement. Craniocervical junction remains unremarkable. The cervical cord is otherwise unremarkable. At C2-3, axial and sagittal images demonstrate central disc bulging. No cord compression is seen. At C3-4, there is a central disc herniation which extends cranially along the posterior surface of the C3 vertebral body nearly to the C2-3 disc level. This effaces the ventral subarachnoid space and indents the ventral margin of the cord. This appears slightly larger although it is not new. At C4-5, there is central disc bulging effacing the ventral subarachnoid space and indenting the ventral margin of the cord. Canal size is normal. At C5-6, there is diffuse disc bulging effacing the ventral subarachnoid space. There is mild uncovertebral spurring on the left, but no neural foraminal narrowing is seen. At C6-7, there is diffuse disc bulging. Mild bilateral uncovertebral spurring is seen at C6-7. This is a new finding. Impression: Cervical cord syrinx cavity 4 x 3 x 15 mm in diameter at the C7 level. There is a central disc herniation at C3-4 with cranial extension, which is slightly more prominent. Degenerative disc disease is seen at C4-5, C5-6 and C6-7 with disc bulging at these levels. Bilateral C6-7 neural foraminal narrowing is seen, mild in degree. Electronically Signed by Collin Wagner MD 11/11/2018 07:59 P
== END ==
LOC: M PLARAD 13:17
PROVIDERS: ATTEND Anesthesiology
DX: M50.21 Other cervical disc displacement, high cervical region (principal); M50.321 Other cervical disc degeneration at C4-C5 level; M50.322 Other cervical disc degeneration at C5-C6 level; M50.323 Other cervical disc degeneration at C6-C7 level

== ENCOUNTER → 2018-12-07 | Outpatient (CLI) | payer MEDICARE ==
[~2018-12-07] MED LIST changes: -TRAZ-160 PO; +TRAZ-252 PO
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
== END ==
LOC: M PAIN 14:00
PROVIDERS: ATTEND Anesthesiology
DX: M46.1 Sacroiliitis, not elsewhere classified (principal); G89.29 Other chronic pain; Z86.59 Personal history of other mental and behavioral disorders; G43.909 Migraine, unspecified, not intractable, without status migrainosus; M79.7 Fibromyalgia; Z88.6 Allergy status to analgesic agent; Z88.8 Allergy status to other drugs, medicaments and biological substances; Z96.9 Presence of functional implant, unspecified; Z79.899 Other long term (current) drug therapy

== ENCOUNTER → 2018-12-13 | Outpatient (CLI) | payer MEDICARE ==
[~2018-12-13] MED LIST changes: +BUPIVACAINE HCL 0.25% 30 ML VIAL As Ordered ONE; +ISOVUE-M 300 61% 15ML VIAL (Q9967) As Ordered ONE; +LIDOCAINE 1% SDV INJ 30 ML VIAL As Ordered ONE; +MIDAZOLAM INJ 2 MG/2 ML VIAL (J2250) As Ordered ONE; +TRIAMCINOLONE ACETONIDE SUSP 40 MG/ML VIAL (J3301) As Ordered ONE; +diphenhydrAMINE INJ 50MG/ML VIAL (J1200) As Ordered ONE; +fentaNYL 100 MCG/2 ML INJECTION (J3010) As Ordered ONE
--- NOTE | 2018-12-13 17:33 | REP ---
SI joint series: Bilateral limited study: History: Bilateral SI joint injection for pain. 29 seconds of fluoroscopy time is reported. Findings: A sequence of four last image hold fluoroscopically obtained spot radiographs of the SI joints bilaterally document various needle positions associated with bilateral SI joint injection procedure. Electronically Signed by Collin Wagner MD 12/13/2018 09:14 P
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
== END ==
LOC: M PAIN 13:45
PROVIDERS: ATTEND Anesthesiology
DX: M46.1 Sacroiliitis, not elsewhere classified (principal); F31.9 Bipolar disorder, unspecified; F43.10 Post-traumatic stress disorder, unspecified; M51.16 Intervertebral disc disorders with radiculopathy, lumbar region; G43.709 Chronic migraine without aura, not intractable, without status migrainosus; M79.7 Fibromyalgia; R10.13 Epigastric pain; Z79.899 Other long term (current) drug therapy; Z88.6 Allergy status to analgesic agent; Z88.8 Allergy status to other drugs, medicaments and biological substances
CPT/HCPCS: 99152; G0260; J1200; J2250; J3010; J3301; Q9967

== ENCOUNTER → 2019-01-19 | Outpatient (CLI) | payer MEDICARE ==
[~2019-01-19] MED LIST changes: -BUPIVACAINE HCL 0.25% 30 ML VIAL As Ordered ONE; -ISOVUE-M 300 61% 15ML VIAL (Q9967) As Ordered ONE; -LIDOCAINE 1% SDV INJ 30 ML VIAL As Ordered ONE; -MIDAZOLAM INJ 2 MG/2 ML VIAL (J2250) As Ordered ONE; -OMEP20CA3 PO; +OMEP20CA4 PO; -TRIAMCINOLONE ACETONIDE SUSP 40 MG/ML VIAL (J3301) As Ordered ONE; -diphenhydrAMINE INJ 50MG/ML VIAL (J1200) As Ordered ONE; -fentaNYL 100 MCG/2 ML INJECTION (J3010) As Ordered ONE
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
== END ==
LOC: M PAIN 14:30
PROVIDERS: ATTEND Family Medicine
DX: M46.1 Sacroiliitis, not elsewhere classified (principal); F31.9 Bipolar disorder, unspecified; F43.10 Post-traumatic stress disorder, unspecified; M51.16 Intervertebral disc disorders with radiculopathy, lumbar region; G43.709 Chronic migraine without aura, not intractable, without status migrainosus; M79.7 Fibromyalgia; Z98.1 Arthrodesis status; Z79.899 Other long term (current) drug therapy; Z88.6 Allergy status to analgesic agent; Z88.8 Allergy status to other drugs, medicaments and biological substances

== ENCOUNTER → 2019-03-01 | Outpatient (CLI) | payer MEDICARE ==
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
== END ==
LOC: M PAIN 13:45
PROVIDERS: ATTEND Anesthesiology
DX: M46.1 Sacroiliitis, not elsewhere classified (principal); G89.29 Other chronic pain; Z86.59 Personal history of other mental and behavioral disorders; G43.909 Migraine, unspecified, not intractable, without status migrainosus; M79.7 Fibromyalgia; Z88.6 Allergy status to analgesic agent; Z88.8 Allergy status to other drugs, medicaments and biological substances; Z79.899 Other long term (current) drug therapy

== ENCOUNTER 2019-04-09 07:30 | Emergency (ER) | payer MEDICARE ==
[~2019-04-09] VITALS: Ht 165.1 cm; Wt 66.7 kg
[2019-04-09 07:31] VITALS: BP 116/79
[2019-04-09] MEDS ORDERED: LAMI200T PO ×2 (07:38)
[2019-04-09] MEDS ORDERED: PYRI1TAB5 PO (08:11)
[2019-04-09] MEDS ORDERED: MACR100C43 PO (08:11)
[2019-04-09] MEDS ORDERED: NITROFURANTOIN (MACROBID) 100 MG CAP PO ONE (08:15)
[2019-04-09] MEDS ORDERED: KETOROLAC 60 MG/2 ML VIAL (J1885) IM ONE (08:15)
[2019-04-09] MEDS ORDERED: PHENAZOPYRIDINE 100 MG TAB PO ONE (08:15)
[2019-04-09] MEDS ORDERED: PRED20TA PO (08:28)
--- NOTE | 2019-04-09 08:32 | REP ---
Right shoulder three views : There is no fracture or dislocation. Mineralization and joint spaces are normal. There are no calcifications or foreign bodies. Impression: Negative right shoulder . Electronically Signed by Chivo Patterson MD 04/09/2019 08:23 A
[2019-04-11] MEDS ORDERED: BACT800T5 PO (10:10)
== END 2019-04-09 08:42 | disposition home or self-care (01) ==
LOC: M ED 07:30
DX: M25.511 Pain in right shoulder (principal); N39.0 Urinary tract infection, site not specified; Z88.8 Allergy status to other drugs, medicaments and biological substances
CPT/HCPCS: 73030; 81001; 87088; 87186; 96372; 99284; J1885

== ENCOUNTER → 2019-04-11 | Outpatient (REF) | payer MEDICARE ==
[~2019-04-11] MED LIST changes: +BACT800T5 PO; +LAMI200T PO; +MACR100C43 PO; +PRED20TA PO; +PYRI1TAB5 PO
[2019-04-11 17:52] LABS: BASO % 0.1 % (0.0-1.0); HEMATOCRIT 37.7 % (36.0-47.0); HEMOGLOBIN 12.2 g/dl (12.0-15.5); LYMPH # 0.7 10^3/uL (1.5-5.0); LYMPH % 7.1 % (24.0-44.0); MEAN CORPUSCULAR HEMOGLOBIN 29.1 pg (27.0-33.0); MEAN CORPUSCULAR HGB CONC 32.4 g/dl (32.0-36.5); MONO # 0.1 10^3/uL (0.0-0.8); MONO % 1.1 % (0.0-5.0); NEUTROPHILS % 91.5 % (36.0-66.0); PLATELET COUNT, AUTOMATED 250 10^3/uL (150-450); RED BLOOD COUNT 4.19 10^6/uL (4.00-5.40); WHITE BLOOD COUNT 9.8 10^3/uL (4.0-10.0)
[2019-04-11 18:26] LABS: ALBUMIN 3.8 GM/DL (3.2-5.2); ALT/SGPT 16 U/L (12-78); BILIRUBIN,TOTAL 0.6 MG/DL (0.2-1.0); BLOOD UREA NITROGEN 7 MG/DL (7-18); CALCIUM LEVEL 8.5 MG/DL (8.5-10.1); CARBON DIOXIDE LEVEL 32 MEQ/L (21-32); CHLORIDE LEVEL 105 MEQ/L (98-107); CREATININE FOR GFR 0.84 MG/DL (0.55-1.30); FREE T4 1.07 NG/DL (0.76-1.46); GLOMERULAR FILTRATION RATE > 60.0 (>51); GLUCOSE, FASTING 111 MG/DL (70-100); POTASSIUM SERUM 3.7 MEQ/L (3.5-5.1); SODIUM LEVEL 141 MEQ/L (136-145); THYROID STIMULATING HORMONE 0.227 uIU/ML (0.358-3.740); TOTAL PROTEIN 6.7 GM/DL (6.4-8.2)
[2019-04-17 14:33] LABS: CANNABINOID, URINE Positive (Cutoff=20); CARBOXY THC (GC/MS) >300 ng/mL (Cutoff=10); CREATININE, URINE 21.8 mg/dL (20.0-300.0)
== END ==
LOC: M SFHCPLAZ 15:53
PROVIDERS: ATTEND Physician Assistant Medical
DX: N30.90 Cystitis, unspecified without hematuria (principal); F41.9 Anxiety disorder, unspecified; K21.9 Gastro-esophageal reflux disease without esophagitis
CPT/HCPCS: 36415; 80053; 84439; 84443; 85025; G0463

== ENCOUNTER → 2019-05-01 | Outpatient (CLI) | payer MEDICARE ==
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
== END ==
LOC: M PAIN 11:30
PROVIDERS: ATTEND Family Medicine
DX: M25.511 Pain in right shoulder (principal); F31.9 Bipolar disorder, unspecified; F43.10 Post-traumatic stress disorder, unspecified; M51.16 Intervertebral disc disorders with radiculopathy, lumbar region; K21.9 Gastro-esophageal reflux disease without esophagitis; G43.709 Chronic migraine without aura, not intractable, without status migrainosus; M79.7 Fibromyalgia; R63.1 Polydipsia; G44.52 New daily persistent headache (NDPH); Z79.1 Long term (current) use of non-steroidal anti-inflammatories (NSAID); Z79.899 Other long term (current) drug therapy; Z88.6 Allergy status to analgesic agent; Z88.8 Allergy status to other drugs, medicaments and biological substances

== ENCOUNTER → 2019-05-03 | Outpatient (CLI) | payer MEDICARE ==
--- NOTE | 2019-05-03 16:47 | REP ---
RIGHT SHOULDER, THREE VIEWS: There is no evidence of an acute fracture, dislocation or intrinsic bone disease. The joint spaces are unremarkable. IMPRESSION: No fracture or dislocation. Electronically Signed by Chivo Martinez MD 05/04/2019 02:37 P
== END ==
LOC: M RAD 16:10
PROVIDERS: ATTEND Physician Assistant Medical
DX: M25.519 Pain in unspecified shoulder (principal)

== ENCOUNTER → 2019-05-04 | Outpatient (CLI) | payer MEDICARE ==
[2019-05-04 17:30] LABS: FREE T4 0.94 NG/DL (0.76-1.46); THYROID STIMULATING HORMONE 0.494 uIU/ML (0.358-3.740)
[2019-05-04 17:32] LABS: FOLLICLE STIMULATING HORMONE 23.2 mIU/mL; LUTEINIZING HORMONE 17.2 mIU/mL
[2019-05-04 17:37] LABS: HCG, SERUM QUALITATIVE NEGATIVE (NEGATIVE)
--- NOTE | 2019-05-04 17:45 | REP ---
Clinical: Postmenopausal bleeding. Technique: Transabdominal pelvic ultrasound followed by transvaginal examination for better evaluation of the endometrium and adnexa with color Doppler evaluation of the ovaries. Findings: Bladder is normal and measures 8.1 x 3.5 x 5.1 cm. Heterogeneous anteverted uterus measures 9.5 x 5.1 x 6.3 cm. Endometrial complex is thickened to 6.5 mm. No discrete uterine or endometrial abnormality is identified. The bilateral ovaries are normal in appearance and vascularity without torsion. Right ovary measures 2.4 x 1.7 x 1.9 cm (RI 0.62) left ovary measures 4.5 x 2.3 x 4.0 cm (RI 0.58) and includes 1.6 cm and 1.9 cm cysts/follicles. No pelvic free fluid or and adnexal mass lesion. Impression: 1. Slightly thickened endometrial complex without discrete lesion. 2. Two cysts in the left ovary. Electronically Signed by Lucio Tran MD 05/04/2019 05:37 P
== END ==
LOC: M RAD 16:03
PROVIDERS: ATTEND Advanced Practice Midwife
DX: N95.0 Postmenopausal bleeding (principal); E07.89 Other specified disorders of thyroid

== ENCOUNTER → 2019-05-05 | Outpatient (CLI) | payer MEDICARE ==
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
== END ==
LOC: M PAIN 10:45
PROVIDERS: ATTEND Anesthesiology
DX: M46.1 Sacroiliitis, not elsewhere classified (principal); M96.1 Postlaminectomy syndrome, not elsewhere classified; Z86.59 Personal history of other mental and behavioral disorders; K21.9 Gastro-esophageal reflux disease without esophagitis; G43.909 Migraine, unspecified, not intractable, without status migrainosus; M79.7 Fibromyalgia; Z88.6 Allergy status to analgesic agent; Z88.8 Allergy status to other drugs, medicaments and biological substances; Z79.899 Other long term (current) drug therapy

== ENCOUNTER → 2019-05-10 | Outpatient (REF) | payer MEDICARE ==
[2019-05-12 14:17] LABS: HPV HYBRID CAPTURE II Negative (Negative)
== END ==
LOC: M LAB REF 13:51
PROVIDERS: ATTEND Advanced Practice Midwife
DX: Z12.4 Encounter for screening for malignant neoplasm of cervix (principal)

== ENCOUNTER → 2019-05-10 | Outpatient (CLI) | payer MEDICARE ==
[~2019-05-10] MED LIST changes: +BUPIVACAINE HCL 0.25% 30 ML VIAL As Ordered ONE; +ISOVUE-M 300 61% 15ML VIAL (Q9967) As Ordered ONE; +LIDOCAINE 1% SDV INJ 30 ML VIAL As Ordered ONE; +MIDAZOLAM INJ 2 MG/2 ML VIAL (J2250) As Ordered ONE; +TRIAMCINOLONE ACETONIDE SUSP 40 MG/ML VIAL (J3301) As Ordered ONE; +diphenhydrAMINE INJ 50MG/ML VIAL (J1200) As Ordered ONE
--- NOTE | 2019-05-10 14:57 | REP ---
SI JOINT SERIES: SIX VIEWS. HISTORY: Bilateral SI joint injection for pain. 17 seconds of fluoroscopy time is reported. FINDINGS: A sequence of six last image hold fluoroscopically obtained spot radiographs of the SI joints document various needle positions and contrast injections associated with SI joint injection procedure. Electronically Signed by Collin Wagner MD 05/10/2019 04:54 P
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
== END ==
LOC: M PAIN 13:00
PROVIDERS: ATTEND Anesthesiology
DX: M46.1 Sacroiliitis, not elsewhere classified (principal); Z12.4 Encounter for screening for malignant neoplasm of cervix; F31.9 Bipolar disorder, unspecified; F43.10 Post-traumatic stress disorder, unspecified; M51.16 Intervertebral disc disorders with radiculopathy, lumbar region; M79.7 Fibromyalgia; Z98.1 Arthrodesis status; Z79.1 Long term (current) use of non-steroidal anti-inflammatories (NSAID); Z79.899 Other long term (current) drug therapy; Z88.8 Allergy status to other drugs, medicaments and biological substances
CPT/HCPCS: 87624; 99152; G0123; G0260; J1200; J2250; J3301; Q9967

== ENCOUNTER → 2019-06-12 | Outpatient (CLI) | payer MEDICARE ==
[~2019-06-12] MED LIST changes: -BUPIVACAINE HCL 0.25% 30 ML VIAL As Ordered ONE; -ISOVUE-M 300 61% 15ML VIAL (Q9967) As Ordered ONE; -LAMO150T2 PO; +LAMO150T3 PO; -LAMO200T2 PO; +LAMO200T3 PO; -LIDOCAINE 1% SDV INJ 30 ML VIAL As Ordered ONE; -MIDAZOLAM INJ 2 MG/2 ML VIAL (J2250) As Ordered ONE; +OMEP-172 PO; -OMEP20CA4 PO; -TRIAMCINOLONE ACETONIDE SUSP 40 MG/ML VIAL (J3301) As Ordered ONE; -diphenhydrAMINE INJ 50MG/ML VIAL (J1200) As Ordered ONE
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
== END ==
LOC: M PAIN 11:15
PROVIDERS: ATTEND Family Medicine
DX: M54.12 Radiculopathy, cervical region (principal); Z86.59 Personal history of other mental and behavioral disorders; K21.9 Gastro-esophageal reflux disease without esophagitis; G43.909 Migraine, unspecified, not intractable, without status migrainosus; M79.7 Fibromyalgia; Z88.8 Allergy status to other drugs, medicaments and biological substances; Z79.899 Other long term (current) drug therapy

== ENCOUNTER 2019-07-14 11:44 | Day surgery (SDC) | payer MEDICARE ==
[~2019-07-14] VITALS: Ht 165.1 cm; Wt 66.0 kg
[~2019-07-14 11:44] MED LIST changes: +ATIV1TAB7 PO; +LR 1,000 ML IV ONE; -OMEP-172 PO; +OMEP1CAP73 PO; -TRAZ10TA PO; +TRAZ1TAB12 PO; +gas x PO
[2019-07-14 12:28] LABS: BLOOD UREA NITROGEN 17 MG/DL (7-18); CALCIUM LEVEL 8.9 MG/DL (8.5-10.1); CARBON DIOXIDE LEVEL 32 MEQ/L (21-32); CHLORIDE LEVEL 101 MEQ/L (98-107); CREATININE FOR GFR 0.89 MG/DL (0.55-1.30); GLOMERULAR FILTRATION RATE > 60.0 (>51); GLUCOSE, FASTING 93 MG/DL (70-100); POTASSIUM SERUM 3.7 MEQ/L (3.5-5.1); SODIUM LEVEL 139 MEQ/L (136-145)
[2019-07-14 12:34] LABS: HEMATOCRIT 43.1 % (36.0-47.0); HEMOGLOBIN 14.2 g/dl (12.0-15.5); MEAN CORPUSCULAR HEMOGLOBIN 29.4 pg (27.0-33.0); MEAN CORPUSCULAR HGB CONC 32.9 g/dl (32.0-36.5); MEAN CORPUSCULAR VOLUME 89.2 fl (80.0-96.0); PLATELET COUNT, AUTOMATED 313 10^3/uL (150-450); RED BLOOD COUNT 4.83 10^6/uL (4.00-5.40); WHITE BLOOD COUNT 8.8 10^3/uL (4.0-10.0)
[2019-07-14] MEDS ORDERED: dexameTHASONE 4 MG/ML 1ML VIAL (J1100) As Ordered ONE (12:51)
[2019-07-14] MEDS ORDERED: propofoL 200 MG/20 ML VIAL As Ordered ONE (12:51)
[2019-07-14] MEDS ORDERED: ONDANSETRON 4MG/2ML VIAL (J2405) As Ordered ONE (12:51)
[2019-07-14] MEDS ORDERED: LIDOCAINE 2% INJ 100 MG/5 ML SDV (FOR ANES.) As Ordered ONE (12:51)
[2019-07-14] MEDS ORDERED: ACETAMINOPHEN 1000MG 100ML IV BTL (OFIRMEV) (J0131 PER 10MG) As Ordered ONE (12:52)
[2019-07-14] MEDS ORDERED: KETOROLAC 60 MG/2 ML VIAL (J1885) As Ordered ONE (12:52)
[2019-07-14] MEDS ORDERED: fentaNYL 100 MCG/2 ML INJECTION (J3010) As Ordered ONE (12:53)
[2019-07-14] MEDS ORDERED: MIDAZOLAM INJ 2 MG/2 ML VIAL (J2250) As Ordered ONE (12:53)
[2019-07-14] MEDS ORDERED: KETAMINE HCL 200 MG/20 ML VIAL As Ordered ONE (13:03)
[2019-07-14] MEDS ORDERED: GLYCOPYRROLATE INJ 0.2 MG/ML 2 ML VIAL As Ordered ONE (13:38)
[2019-07-14] MEDS ORDERED: ePHEDrine SULFATE 25 MG/5 ML(5MG/ML) SYRINGE As Ordered ONE (14:07)
[2019-07-14] MEDS ORDERED: BUPRENORPHINE/NALOXONE 8-2MG SUBLINGUAL TABLET(SUBOXONE) PO ONE (15:15)
[2019-07-14] MEDS ORDERED: ONDANSETRON 4MG/2ML VIAL (J2405) IV PRN (15:15)
[2019-07-14] MEDS ORDERED: fentaNYL 100 MCG/2 ML INJECTION (J3010) IV PRN (15:15)
[2019-07-14] MEDS ORDERED: LR 1,000 ML IV SCH (15:15)
[2019-07-14 15:55] VITALS: BP 114/65
--- NOTE | 2019-07-14 22:14 | RO ---
DATE OF PROCEDURE: 07/14/2019 PREPROCEDURE DIAGNOSIS: Postmenopausal bleeding. POSTPROCEDURE DIAGNOSIS: Postmenopausal bleeding. PROCEDURE: Hysterotomy, dilation and curettage (D and C). SURGEON: Yakov Recinos MD SILO MAN: ANESTHESIA: General endotracheal. ESTIMATED BLOOD LOSS: 50 mL FINDINGS: Small endometrial polyp attached to the fundus, otherwise normal endometrial cavity. DESCRIPTION OF PROCEDURE: The patient was taken to the operating room where general endotracheal anesthesia was induced. She was prepped and draped in a sterile fashion in the dorsal lithotomy position. A speculum was placed in the vagina. The anterior lip of the cervix was grasped with tenaculum. Cervix was dilated with tapered dilators. A diagnostic hysteroscope using normal saline as distention media was placed through the internal os. Visualization of the endometrial cavity revealed the findings noted above. The hysteroscope was removed. Sharp curettage was performed. The hysteroscope was placed back in the endometrial cavity. The cavity appeared normal with no further polyps present. All instruments were removed. Sponge and instrument counts were correct. The patient went to the recovery room in stable condition.
== END 2019-07-14 16:08 | disposition home or self-care (01) ==
LOC: M SDC 11:44
PROVIDERS: ATTEND Specialist
DX: N95.0 Postmenopausal bleeding (principal); N84.0 Polyp of corpus uteri; K21.9 Gastro-esophageal reflux disease without esophagitis; F41.9 Anxiety disorder, unspecified; F32.9 Major depressive disorder, single episode, unspecified; M79.7 Fibromyalgia; Z79.899 Other long term (current) drug therapy; Z88.8 Allergy status to other drugs, medicaments and biological substances
CPT/HCPCS: 36415; 58558; 80048; 85027; 88305; J0131; J1100; J1885; J2250; J2405; J3010

== ENCOUNTER → 2019-07-21 | Outpatient (CLI) | payer MEDICARE ==
[~2019-07-21] MED LIST changes: -LR 1,000 ML IV ONE
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
== END ==
LOC: M PAIN 13:15
PROVIDERS: ATTEND Anesthesiology
DX: M50.10 Cervical disc disorder with radiculopathy, unspecified cervical region (principal); G89.29 Other chronic pain; Z86.59 Personal history of other mental and behavioral disorders; K21.9 Gastro-esophageal reflux disease without esophagitis; G43.909 Migraine, unspecified, not intractable, without status migrainosus; M79.7 Fibromyalgia; Z88.8 Allergy status to other drugs, medicaments and biological substances; Z96.89 Presence of other specified functional implants; Z79.899 Other long term (current) drug therapy

== ENCOUNTER → 2019-07-26 | Outpatient (CLI) | payer MEDICARE ==
[~2019-07-26] MED LIST changes: +ISOVUE-M 300 61% 15ML VIAL (Q9967) As Ordered ONE; +LIDOCAINE 1% SDV INJ 30 ML VIAL As Ordered ONE; +MIDAZOLAM INJ 2 MG/2 ML VIAL (J2250) As Ordered ONE; +diphenhydrAMINE INJ 50MG/ML VIAL (J1200) As Ordered ONE; +fentaNYL 100 MCG/2 ML INJECTION (J3010) As Ordered ONE; +methylPREDNISolone SUSP 40 MG/ML (DEPO-medrol) VIAL (J1030) As Ordered ONE
--- NOTE | 2019-07-26 17:23 | REP ---
Cervical spine limited study two views. History: Cervical epidural steroid injection for pain. 15 seconds of fluoroscopy time is reported. Findings: A sequence of two last image hold fluoroscopically obtained spot radiographs of the cervicothoracic junction document needle position and contrast injection associated with injection procedure. Electronically Signed by Collin Wagner MD 07/26/2019 05:14 P
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
== END ==
LOC: M PAIN 14:00
PROVIDERS: ATTEND Anesthesiology
DX: M50.10 Cervical disc disorder with radiculopathy, unspecified cervical region (principal); Z86.59 Personal history of other mental and behavioral disorders; K21.9 Gastro-esophageal reflux disease without esophagitis; G43.909 Migraine, unspecified, not intractable, without status migrainosus; M79.7 Fibromyalgia; Z88.8 Allergy status to other drugs, medicaments and biological substances; Z79.899 Other long term (current) drug therapy
CPT/HCPCS: 62321; 99152; 99153; J1030; J1200; J2250; J3010; Q9967

== ENCOUNTER → 2019-08-16 | Outpatient (CLI) | payer MEDICARE ==
[~2019-08-16] MED LIST changes: -ISOVUE-M 300 61% 15ML VIAL (Q9967) As Ordered ONE; -LIDOCAINE 1% SDV INJ 30 ML VIAL As Ordered ONE; -MIDAZOLAM INJ 2 MG/2 ML VIAL (J2250) As Ordered ONE; -diphenhydrAMINE INJ 50MG/ML VIAL (J1200) As Ordered ONE; -fentaNYL 100 MCG/2 ML INJECTION (J3010) As Ordered ONE; -methylPREDNISolone SUSP 40 MG/ML (DEPO-medrol) VIAL (J1030) As Ordered ONE
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
== END ==
LOC: M PAIN 11:30
PROVIDERS: ATTEND Family Medicine
DX: M50.10 Cervical disc disorder with radiculopathy, unspecified cervical region (principal)

== ENCOUNTER → 2019-08-25 | Outpatient (CLI) | payer MEDICARE ==
--- NOTE | 2019-08-25 14:40 | REPVR ---
PROCEDURE INFORMATION: Exam: MR Thoracic Spine Without Contrast Exam date and time: 08/25/2019 1:17 PM Age: 53 years old Clinical indication: Pain in thoracic spine; Without myelpathy or radiculopathy; Prior surgery; Surgery date: 6+ months; Surgery type: Scs implantation; Patient HX: Severe neck and back pain, PT has scs; Additional info: Chronic pain, pain thoracic spine TECHNIQUE: Imaging protocol: Multiplanar magnetic resonance images of the thoracic spine without contrast. COMPARISON: MRI-Spine,Thoracic without con 04/28/2013 4:12 PM MRI-Spine,Cervical without con 11/11/2018 1:44:50 PM FINDINGS: Tubes, catheters and devices: Examination reveals a thoracic spinal cord stimulator device with the tip ending at T7 level.Metallic inhomogeneity artifact from surgical hardware limits evaluation in this region. Vertebrae: The thoracic vertebral bodies are normal height and alignment.No acute fracture or dislocation is seen. Epidural space: There is no evidence of epidural masses or hemorrhage. Spinal cord: Examination again demonstrates stable appearance of focal intramedullary T2 signal suggesting myelomalacia in the cervical spinal cord at C7 level, unchanged since the previous studies. The thoracic spinal cord is normal in thickness and signal intensity.There is no cord compression or intramedullary signal abnormality. Discs/Spinal canal/Neural foramina: The T7-8 disc is mildly reduced in height and T2 signal indicating degeneration. There is a small posterior and left paracentral herniation without significant spinal canal or foraminal compromise. Remainder of the thoracic disc spaces are well maintained. Soft tissues: The prevertebral soft tissues appear normal. IMPRESSION: 1. The thoracic vertebral bodies are normal height and alignment.No acute fracture or dislocation is seen. 2. Examination reveals a thoracic spinal cord stimulator device with the tip ending at T7 level.Metallic inhomogeneity artifact from surgical hardware limits evaluation in this region. 3. Examination again demonstrates stable appearance of focal intramedullary T2 signal suggesting myelomalacia in the cervical spinal cord at C7 level, unchanged since the previous studies. 4. The thoracic spinal cord is normal in thickness and signal intensity.There is no cord compression or intramedullary signal abnormality. 5. The T7-8 disc is mildly reduced in height and T2 signal indicating degeneration. There is a small posterior and left paracentral herniation without significant spinal canal or foraminal compromise. Remainder of the thoracic disc spaces are well maintained. Electronically signed by: Ross Lara On 08/25/2019 14:40:12 PM
== END ==
LOC: M PLARAD 11:16
PROVIDERS: ATTEND Anesthesiology
DX: M54.14 Radiculopathy, thoracic region (principal)

== ENCOUNTER → 2019-10-12 | Outpatient (CLI) | payer MEDICARE ==
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
== END ==
LOC: M TMPAIN 11:15 → M PAIN 11:15
PROVIDERS: ATTEND Family Medicine
DX: M47.816 Spondylosis without myelopathy or radiculopathy, lumbar region (principal); G89.29 Other chronic pain; Z86.59 Personal history of other mental and behavioral disorders; K21.9 Gastro-esophageal reflux disease without esophagitis; G43.909 Migraine, unspecified, not intractable, without status migrainosus; M79.7 Fibromyalgia; Z88.8 Allergy status to other drugs, medicaments and biological substances; Z79.899 Other long term (current) drug therapy

== ENCOUNTER → 2019-11-09 | Outpatient (CLI) | payer MEDICARE ==
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
== END ==
LOC: M PAIN 13:00 → M TMPAIN 13:00
PROVIDERS: ATTEND Family Medicine
DX: M47.816 Spondylosis without myelopathy or radiculopathy, lumbar region (principal); Z79.899 Other long term (current) drug therapy; Z88.8 Allergy status to other drugs, medicaments and biological substances

== ENCOUNTER → 2019-12-19 | Outpatient (CLI) | payer MEDICARE ==
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
== END ==
LOC: M PAIN 13:30
PROVIDERS: ATTEND Family Medicine
DX: M50.10 Cervical disc disorder with radiculopathy, unspecified cervical region (principal)

== ENCOUNTER → 2019-12-27 | Outpatient (CLI) | payer MEDICARE ==
[~2019-12-27] MED LIST changes: -PROC5TA PO; +PROC5TAB57 PO
[2019-12-27 15:14] LABS: ALBUMIN 3.4 GM/DL (3.2-5.2); ALT/SGPT 18 U/L (12-78); BILIRUBIN,TOTAL 0.5 MG/DL (0.2-1.0); BLOOD UREA NITROGEN 12 MG/DL (7-18); CALCIUM LEVEL 8.5 MG/DL (8.5-10.1); CARBON DIOXIDE LEVEL 32 MEQ/L (21-32); CHLORIDE LEVEL 102 MEQ/L (98-107); CHOLESTEROL LEVEL 157 MG/DL (<200); CREATININE FOR GFR 0.86 MG/DL (0.55-1.30); FREE T4 0.96 NG/DL (0.76-1.46); GLOMERULAR FILTRATION RATE > 60.0 (>51); GLUCOSE, FASTING 84 MG/DL (70-100); HDL CHOLESTEROL 73 MG/DL (>40); LDL CHOLESTEROL 67 MG/DL (<100); NON-HDL-C 84 MG/DL; POTASSIUM SERUM 3.7 MEQ/L (3.5-5.1); SODIUM LEVEL 137 MEQ/L (136-145); THYROID STIMULATING HORMONE 0.858 uIU/ML (0.358-3.740); TOTAL PROTEIN 6.4 GM/DL (6.4-8.2); TRIGLYCERIDES LEVEL 85 MG/DL (<150)
[2019-12-27 15:23] LABS: BASO % 0.6 % (0.0-1.0); EOS # 0.1 10^3/uL (0.0-0.5); EOS % 1.3 % (0.0-3.0); HEMATOCRIT 40.4 % (36.0-47.0); HEMOGLOBIN 13.5 g/dl (12.0-15.5); LYMPH # 1.9 10^3/uL (1.5-5.0); MEAN CORPUSCULAR HEMOGLOBIN 29.5 pg (27.0-33.0); MEAN CORPUSCULAR HGB CONC 33.4 g/dl (32.0-36.5); MEAN CORPUSCULAR VOLUME 88.4 fl (80.0-96.0); MONO # 0.5 10^3/uL (0.0-0.8); MONO % 7.7 % (0.0-5.0); NEUTROPHILS # 3.8 10^3/uL (1.5-8.5); NEUTROPHILS % 60.1 % (36.0-66.0); PLATELET COUNT, AUTOMATED 241 10^3/uL (150-450); RED BLOOD COUNT 4.57 10^6/uL (4.00-5.40); WHITE BLOOD COUNT 6.4 10^3/uL (4.0-10.0)
== END ==
LOC: M LAB 13:58
PROVIDERS: ATTEND Nurse Practitioner Psychiatric/Mental Health
DX: F43.10 Post-traumatic stress disorder, unspecified (principal)

== ENCOUNTER → 2019-12-27 | Outpatient (CLI) | payer MEDICARE ==
[~2019-12-27] MED LIST changes: +PROC5TA PO; -PROC5TAB57 PO
--- NOTE | 2019-12-27 15:43 | REP ---
CT cervical spine: 12/27/2019. Indication: Neck pain. Technique: Unenhanced axial CT images of the cervical spine were performed with coronal and sagittal reconstructions provided. Comparison: MRI cervical spine dated 11/11/[address] cervical spine noted 02/06/2019. Findings: There is no acute fracture, subluxation or dislocation. Minimal reversal of the cervical lordosis is noted which may be positional. No lytic or blastic lesions are present. Multilevel degenerative disc space narrowing and anterior osteophytic spurring are noted most pronounced at C5/C6. There is no severe narrowing of the spinal canal detected by this technique. There is no evidence of hemorrhage within the spinal canal. The paraspinal soft tissues are without acute abnormality. Impression: No acute osseous injury of the cervical spine. Electronically Signed by Willie Arroyo DO 12/27/2019 03:35 P
== END ==
LOC: M RAD 13:54
PROVIDERS: ATTEND Family Medicine
DX: M50.10 Cervical disc disorder with radiculopathy, unspecified cervical region (principal); Z79.899 Other long term (current) drug therapy

== ENCOUNTER → 2020-01-17 | Outpatient (CLI) | payer MEDICAID, MEDICARE ==
[~2020-01-17] MED LIST changes: -PROC5TA PO; +PROC5TAB57 PO
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
== END ==
LOC: M PAIN 13:15
PROVIDERS: ATTEND Family Medicine
DX: M47.817 Spondylosis without myelopathy or radiculopathy, lumbosacral region (principal); M50.10 Cervical disc disorder with radiculopathy, unspecified cervical region

== ENCOUNTER → 2020-03-28 | Outpatient (CLI) | payer MEDICARE | LOC: M PAIN 11:11 | PROVIDERS: ATTEND Family Medicine | DX: M47.817 Spondylosis without myelopathy or radiculopathy, lumbosacral region (principal) ==

== ENCOUNTER → 2020-06-17 | Outpatient (CLI) | payer MEDICARE ==
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
== END ==
LOC: M PAIN 14:30
PROVIDERS: ATTEND Family Medicine
DX: M47.817 Spondylosis without myelopathy or radiculopathy, lumbosacral region (principal); G89.29 Other chronic pain; K21.9 Gastro-esophageal reflux disease without esophagitis; G43.909 Migraine, unspecified, not intractable, without status migrainosus; M79.7 Fibromyalgia; Z96.89 Presence of other specified functional implants; Z86.59 Personal history of other mental and behavioral disorders; Z88.8 Allergy status to other drugs, medicaments and biological substances; Z79.899 Other long term (current) drug therapy

== ENCOUNTER → 2020-08-16 | Outpatient (CLI) | payer MEDICARE ==
[~2020-08-16] MED LIST changes: -AMIT25TA PO; +AMIT25TA17 PO; -BUPR150T3 PO; +BUPR150T4 PO
[2020-08-16 11:59] LABS: BASO % 0.6 % (0.0-1.0); EOS # 0.1 10^3/uL (0.0-0.5); EOS % 1.1 % (0.0-3.0); HEMATOCRIT 40.1 % (36.0-47.0); HEMOGLOBIN 13.1 g/dl (12.0-15.5); LYMPH # 1.8 10^3/uL (1.5-5.0); MEAN CORPUSCULAR HEMOGLOBIN 29.1 pg (27.0-33.0); MEAN CORPUSCULAR HGB CONC 32.7 g/dl (32.0-36.5); MEAN CORPUSCULAR VOLUME 89.1 fl (80.0-96.0); MONO # 0.4 10^3/uL (0.0-0.8); MONO % 5.6 % (2.0-8.0); NEUTROPHILS % 63.4 % (36.0-66.0); PLATELET COUNT, AUTOMATED 216 10^3/uL (150-450); WHITE BLOOD COUNT 6.3 10^3/uL (4.0-10.0)
[2020-08-16 12:28] LABS: ALBUMIN 3.3 GM/DL (3.2-5.2); ALT/SGPT 16 U/L (12-78); BILIRUBIN,TOTAL 0.4 MG/DL (0.2-1.0); BLOOD UREA NITROGEN 10 MG/DL (7-18); CALCIUM LEVEL 8.4 MG/DL (8.5-10.1); CARBON DIOXIDE LEVEL 29 MEQ/L (21-32); CHLORIDE LEVEL 108 MEQ/L (98-107); CHOLESTEROL LEVEL 215 MG/DL (<200); CHOLESTEROL RISK RATIO 3.583 (<5); CREATININE FOR GFR 0.95 MG/DL (0.55-1.30); GLOMERULAR FILTRATION RATE > 60.0 (>51); GLUCOSE, FASTING 81 MG/DL (70-100); HDL CHOLESTEROL 60 MG/DL (>40); LDL CHOLESTEROL 123 MG/DL (<100); NON-HDL-C 155 MG/DL; POTASSIUM SERUM 4.3 MEQ/L (3.5-5.1); SODIUM LEVEL 143 MEQ/L (136-145); TOTAL PROTEIN 6.4 GM/DL (6.4-8.2); TRIGLYCERIDES LEVEL 161 MG/DL (<150)
[2020-08-16 12:37] LABS: HEMOGLOBIN A1c 5.2 %
== END ==
LOC: M LAB 11:13
PROVIDERS: ATTEND Physician Assistant Medical
DX: K21.9 Gastro-esophageal reflux disease without esophagitis (principal); Z13.1 Encounter for screening for diabetes mellitus; Z13.220 Encounter for screening for lipoid disorders; Z79.899 Other long term (current) drug therapy

== ENCOUNTER → 2020-11-11 | Outpatient (CLI) | payer MEDICARE ==
[~2020-11-11] MED LIST changes: +BUPR150T12 PO; -BUPR150T4 PO; -SIME180C PO; +SIME180C25 PO
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
== END ==
LOC: M PAIN 14:00
PROVIDERS: ATTEND Family Medicine
DX: M50.10 Cervical disc disorder with radiculopathy, unspecified cervical region (principal); F31.9 Bipolar disorder, unspecified; F43.10 Post-traumatic stress disorder, unspecified; M51.16 Intervertebral disc disorders with radiculopathy, lumbar region; G43.709 Chronic migraine without aura, not intractable, without status migrainosus; M79.7 Fibromyalgia; G44.52 New daily persistent headache (NDPH); Z79.899 Other long term (current) drug therapy; Z88.8 Allergy status to other drugs, medicaments and biological substances

== ENCOUNTER → 2021-10-23 | Outpatient (CLI) | payer MEDICARE | LOC: M PLAIMG 14:06 | PROVIDERS: ATTEND Anesthesiology | DX: M96.1 Postlaminectomy syndrome, not elsewhere classified (principal) ==

== ENCOUNTER → 2022-02-27 | Outpatient (CLI) | payer MEDICARE | LOC: M PAIN 13:45 | PROVIDERS: ATTEND Anesthesiology | DX: M96.1 Postlaminectomy syndrome, not elsewhere classified (principal); G89.29 Other chronic pain; Z96.89 Presence of other specified functional implants; K21.9 Gastro-esophageal reflux disease without esophagitis; G43.909 Migraine, unspecified, not intractable, without status migrainosus; M79.7 Fibromyalgia; Z86.59 Personal history of other mental and behavioral disorders; Z88.8 Allergy status to other drugs, medicaments and biological substances; Z79.899 Other long term (current) drug therapy | CPT/HCPCS: 76000; G0463 ==

== ENCOUNTER → 2022-07-17 | Outpatient (CLI) | payer MEDICARE ==
[~2022-07-17] MED LIST changes: -PAXI10TA12 PO; +PAXI10TA13 PO
== END ==
LOC: M PAIN 14:30
PROVIDERS: ATTEND Anesthesiology
DX: M96.1 Postlaminectomy syndrome, not elsewhere classified (principal); M51.16 Intervertebral disc disorders with radiculopathy, lumbar region; F31.9 Bipolar disorder, unspecified; F43.10 Post-traumatic stress disorder, unspecified; K21.9 Gastro-esophageal reflux disease without esophagitis; G43.909 Migraine, unspecified, not intractable, without status migrainosus; M79.7 Fibromyalgia; G44.52 New daily persistent headache (NDPH); R63.1 Polydipsia; Z79.899 Other long term (current) drug therapy; Z88.8 Allergy status to other drugs, medicaments and biological substances

== ENCOUNTER → 2022-07-27 | Outpatient (CLI) | payer MEDICARE ==
[2022-07-27 11:05] LABS: BASO # 0.1 10^3/uL (0.0-0.2); BASO % 0.9 % (0.0-1.0); EOS # 0.1 10^3/uL (0.0-0.5); EOS % 1.8 % (0.0-3.0); HEMATOCRIT 39.1 % (36.0-47.0); HEMOGLOBIN 12.4 g/dl (12.0-15.5); LYMPH % 35.2 % (24.0-44.0); MEAN CORPUSCULAR HEMOGLOBIN 28.4 pg (27.0-33.0); MEAN CORPUSCULAR HGB CONC 31.7 g/dl (32.0-36.5); MEAN CORPUSCULAR VOLUME 89.5 fl (80.0-96.0); MONO # 0.5 10^3/uL (0.0-0.8); MONO % 8.4 % (2.0-8.0); NEUTROPHILS % 53.5 % (36.0-66.0); PLATELET COUNT, AUTOMATED 266 10^3/uL (150-450); RED BLOOD COUNT 4.37 10^6/uL (4.00-5.40); WHITE BLOOD COUNT 5.6 10^3/uL (4.0-10.0)
[2022-07-27 11:28] LABS: TOTAL 25(OH) VITAMIN D 27.2 NG/ML (20.0-100.0)
[2022-07-27 11:29] LABS: ALBUMIN 3.3 G/DL (3.2-5.2); BILIRUBIN,TOTAL 0.3 MG/DL (0.3-1.2); CALCIUM LEVEL 8.8 MG/DL (8.5-10.1); CHOLESTEROL RISK RATIO 2.41 (<5); CREATININE FOR GFR 1.06 MG/DL (0.55-1.30); GLOMERULAR FILTRATION RATE 57.3 (>51); HDL CHOLESTEROL 74.2 MG/DL (>40); POTASSIUM SERUM 4.5 MMOL/L (3.5-5.1)
[2022-07-27 12:34] LABS: PTH INTACT 40.1 PG/ML (18.5-88.0)
== END ==
LOC: M PLALAB 09:08
PROVIDERS: ATTEND Physician Assistant Medical
DX: E55.9 Vitamin D deficiency, unspecified (principal); E78.00 Pure hypercholesterolemia, unspecified